=== PATIENT | male | born 1990 | race African-American/Black ===

== ENCOUNTER 2023-03-28 18:00 | Inpatient (IN) | payer MEDICAID, SELFPAY ==
[2023-03-28] VITALS (8 sets, daily range): BP systolic 112–145; BP diastolic 94–97; PULSE 89–110; RESP 14–26; O2SAT 98–100
--- NOTE | ~2023-03-28 | XR_ITS ---
EXAMINATION: XR chest 2V Exam Date/Time: 03/28/2023 18:15 CDT HISTORY: LEFT SIDED CHEST/ARM PAIN, NO CARDIAC HX Comparison: None. RESULT: Lines, tubes, and devices: None. Lungs and pleura: Clear. Cardiomediastinal silhouette: Unremarkable. Other: No acute osseous or upper abdominal finding. IMPRESSION: No acute cardiopulmonary process. Reviewed, dictated and finalized at location K.
--- NOTE | 2023-03-28 18:01 | ECG_ITS ---
Measurements Intervals [place] Rate: 108 P: 47 PA: 165 QRS: -25 QRSD: 90 T: 88 QT: 320 QTc: 430 Interpretive Statements SINUS TACHYCARDIA POSSIBLE LEFT ATRIAL ENLARGEMENT LOW QRS VOLTAGE IN PRECORDIAL LEADS BORDERLINE ST-T WAVE ABNORMALITY- HIGH LATERAL LEADS ABNORMAL ECG NO PREVIOUS ECG AVAILABLE FOR COMPARISON Electronically Signed On 03-28-2023 20:12:44 CDT by Tray Watson D.O.
[2023-03-28 18:21] LABS: Basophils Percent Auto 0.3 % (0.2-1.2); Eosinophils Absolute Auto 0.1 K/mm3 (0-0.3); Eosinophils Percent Auto 0.5 % (0-4.4); Hematocrit 44.8 % (42.0-52.0); Hemoglobin 14.8 g/dL (14.0-18.0); Immature Granulocyte Absolute 0.03 K/mm3 (0.00-0.031); Immature Granulocyte Percent A 0.2 % (0-0.5); Lymphocytes Absolute Auto 5.57 K/mm3 (0.9-3.2); Lymphocytes Percent Auto 42.1 % (18.3-44.2); Mean Corpuscular Volume 81.8 fl (80-100); Mean Platelet Volume 9.4 fl (7.4-10.4); Monocytes Absolute Auto 1.1 K/mm3 (0.1-0.6); Monocytes Percent Auto 8.1 % (2.6-8.5); Neutrophils Absolute Auto 6.5 K/mm3 (1.3-6.7); Neutrophils Percent Auto 48.8 % (45.5-73.1); Platelet Count Result 341 k/mm3 (150-375); Red Blood Count 5.48 M/mm3 (4.6-6.20); Red Cell Distribution Width 13.6 % (11.5-14.5); White Blood Count 13.2 K/mm3 (4.5-10.0)
[2023-03-28 18:30] LABS: Alanine Aminotransferase 30 U/L (6-50); Albumin Level 4.7 g/dL (3.5-5.1); Alkaline Phosphatase 96 U/L (38-126); Anion Gap 10 mmol/L (8-16); Aspartate Amino Transferase 39 U/L (17-59); Bilirubin,Total 0.4 mg/dL (0.2-1.3); Blood Urea Nitrogen 7 mg/dL (9-20); Carbon Dioxide 30 mmol/L (22-30); Chloride 99 mmol/L (98-107); Estimated CRCL calculation 144 ml/min; Estimated Glomerular Filt Rate > 60; Glucose 216 mg/dL (65-110); Lipase 56 U/L (23-300); Potassium 4.2 mmol/L (3.4-5.0); Sodium 139 mmol/L (137-145)
[2023-03-28 18:31] LABS: Prothrombin Time 13.2 Seconds (11.1-14.7)
[2023-03-28 18:32] LABS: Partial Thromboplastin Time 28.1 SECONDS (22.3-36.8)
[2023-03-28] MEDS: ASPIRIN 81 MG CHEWABLE TABLET 324 MG PO (18:48)
--- NOTE | 2023-03-28 19:37 | ECG_ITS ---
Measurements Intervals [place] Rate: 105 P: 45 WA: 140 QRS: -23 QRSD: 98 T: 60 QT: 336 QTc: 444 Interpretive Statements SINUS TACHYCARDIA BORDERLINE T WAVE ABNORMALITY- HIGH LATERAL LEADS BORDERLINE ECG COMPARED TO ECG 03/28/2023 18:07:09 NO SIGNIFICANT CHANGES Electronically Signed On 03-28-2023 20:16:28 CDT by Tray Watson D.O.
--- NOTE | 2023-03-28 19:54 | ED.CHESTPAIN ---
HPI - Chest Pain General Chief Complaint: Chest Pain Stated Complaint: chest pain, L arm weakness Time Seen by Provider: 03/28/23 19:03 History of Present Illness HPI narrative: This is a 32-year-old male, with no significant past medical history, presenting to the emergency department complaining of chest pain for the past 3 days. Patient describes the pain as burning, located on the left side, radiating to the left arm. He denies any known aggravating factors, but states it does not appear to be aggravated by physical exertion. Today at approximately 2 PM, the pain stopped and did not recur. Related Data Home Medications Medication Instructions Recorded Confirmed No Home Medications 03/29/23 03/29/23 Allergies Allergy/AdvReac Type Severity Reaction Status Date / Time No Known Allergies Allergy Verified 03/28/23 22:46 Review of Systems Review of Systems: CONSTITUTIONAL: Denies fever, chills, or sweats. CARDIOVASCULAR: chest pain Denies palpitations, or edema. RESPIRATORY: Denies cough or dyspnea. GASTROINTESTINAL: Denies abdominal pain, nausea, vomiting, or diarrhea. GENITOURINARY: Denies dysuria or hematuria. SKIN: Denies rash or itching. MUSCULOSKELETAL: Denies back pain, joint pain, or myalgia. NEUROLOGIC: Denies headache, numbness, dizziness, or weakness. PSYCHIATRIC: Denies anxiety or depression. [facility] Past Medical History Medical History No significant past medical history Surgical History Surgical History No significant past surgical history Family History Family History (Updated 03/29/23 @ 00:43 by Pan Villasenor RN) Mother Diabetes mellitus Cerebrovascular accident Acute myocardial infarction Father Cerebrovascular accident Acute myocardial infarction Gangrene Social History Social History (Updated 03/28/23 @ 19:57 by Maxim Esparza MD) Smoking packs per day: 0.5 Smoking cigarettes per day: 10.0 Years smoked: 15 Smoking pack-years: 7.50 Smoking status: Current every day smoker Tobacco type: cigarettes Alcohol intake: never Substance use: current Substance use type: marijuana Last use: 03/28/23 Lack of Transportation: No Lack of Food: Never True Current Housing: I Have Housing Concerned About Future Housing: No Difficulty Paying Gas/Electric Bills: No Difficulty Paying for Meds: No Currently Unemployed: No Education: High School Diploma/GED Difficulty w/ Childcare or Family Care: No Spiritual care concerns: No Exam Narrative: GENERAL: Well-developed, well-nourished, and in no acute distress. HEAD: Normocephalic, atraumatic. EYES: PERRLA and EOMI. ENT: Nares clear, no rhinorrhea or epistaxis. Mucous membranes moist. Oropharynx without tonsillar hypertrophy exudate or other lesions. Bilateral TMs pearly brian nonbulging NECK: Supple. No JVD CHEST: Clear to auscultation. No respiratory distress. No wheezes rales or rhonchi HEART: Regular rate and rhythm. No murmur heard. Normal peripheral pulses. ABDOMEN: Soft, nontender, nondistended, normal active bowel sounds. EXTREMITIES: Normal range of motion. No edema. SKIN: Warm, dry, no rash. NEURO: No focal deficits. Alert and oriented x3. PSYCH: Normal mood and affect. Course Course Emergency Course: 21:58 - Repeat troponin downtrending. Will discuss patient with cardiology and hospitalist for admission. CBC demonstrates elevated white blood cell count of 13.2. Chemistries demonstrate hyperglycemia of 216 but otherwise unremarkable. UA positive for cannabinoids. Chest x-ray unremarkable. 22:20 - I discussed the patient, Dr. Arriaza who agrees with heparin drip. Keeping the patient n.p.o. with plan for possible cath. 22:27 - I discussed the patient with hospitalist, Dr. Tierney who accepts admission to IMU. Vital Signs Vital signs: Vital Signs Puls
[2023-03-28 20:27] LABS: Amphetamine Screen Urine Negative (Negative); Barbiturate Screen Urine Negative (Negative); Benzodiazepines Screen Urine Negative (Negative); Cannabinoid Screen Urine Positive (Negative); Cocaine Screen Urine Negative (Negative); Methadone Screen Urine Negative (Negative); Opiate Screen Urine Negative (Negative); Phencyclidine Screen Urine Negative (Negative)
[2023-03-28] MEDS: HEPARIN SODIUM 5,000 UNITS/ML VIAL 4000 UNITS IV PUSH (22:47)
[2023-03-28] MEDS: SODIUM CHLORIDE 0.9% IV 1,000 ML 125 ML IV CONT (22:47)
[2023-03-28] MEDS: HEPARIN SOD/D5W 100 UNITS/ML 25,000 UNITS/250 ML BAG 10 UNITS IV CONT (22:48)
--- NOTE | 2023-03-28 23:00 | PC.NURSE ---
Assumed care of pt. at this time. report from CESAR Mathis
--- NOTE | 2023-03-28 23:13 | PM.IMHP ---
H&P: HPI History of Present Illness Date/Time: 03/28/23 23:13 Chief Complaint: Chest pain, left arm weakness. Narrative: This is a 32-year-old male, with with a history of chronic smoking, presenting to the emergency department complaining of chest pain for the past 3 days.? Patient describes the pain as burning, located on the left side, radiating to the left arm.? He denies any known aggravating factors, but states it does not appear to be aggravated by physical exertion.? He describes improvement of his arm pain after walking. Today at approximately 2 PM, the pain stopped and did not recur Review of Systems Review of Systems: CONSTITUTIONAL: Denies fever, chills, or sweats. CARDIOVASCULAR: chest pain Denies palpitations, or edema. RESPIRATORY: Denies cough or dyspnea. GASTROINTESTINAL: Denies abdominal pain, nausea, vomiting, or diarrhea. GENITOURINARY: Denies dysuria or hematuria. SKIN: Denies rash or itching. MUSCULOSKELETAL: Denies back pain, joint pain, or myalgia. NEUROLOGIC: Denies headache, numbness, dizziness, or weakness. PSYCHIATRIC: Denies anxiety or depression. [facility] Past Medical History Medical History No significant past medical history Surgical History Surgical History No significant past surgical history Family History Family History Mother Diabetes mellitus Cerebrovascular accident Acute myocardial infarction Father Cerebrovascular accident Acute myocardial infarction Gangrene Social History Social History Smoking packs per day: 0.5 Smoking cigarettes per day: 10.0 Years smoked: 15 Smoking pack-years: 7.50 Smoking status: Current every day smoker Tobacco type: cigarettes Alcohol intake: never Substance use: current Substance use type: marijuana Last use: 03/28/23 Lack of Transportation: No Lack of Food: Never True Current Housing: I Have Housing Concerned About Future Housing: No Difficulty Paying Gas/Electric Bills: No Difficulty Paying for Meds: No Currently Unemployed: No Education: High School Diploma/GED Difficulty w/ Childcare or Family Care: No Spiritual care concerns: No Meds Home Medications and Allergies Home Medications Medication Instructions Recorded Confirmed Type No Home Medications 03/29/23 03/29/23 History Allergies Allergy/AdvReac Type Severity Reaction Status Date / Time No Known Allergies Allergy Verified 03/28/23 22:46 Vital Signs Vital Signs - 24 hr 03/28/23 19:16 03/28/23 19:16 03/28/23 19:04 Pulse Rate 103 H 98 Respiratory Rate 20 22 H Blood Pressure 144/97 H Pulse Oximetry 100 100 99 Oxygen Delivery Room Air Room Air 03/28/23 19:15 03/28/23 19:16 03/28/23 19:45 Pulse Rate 110 H 110 H 105 H Respiratory Rate 15 18 26 H Blood Pressure 144/97 H Pulse Oximetry 100 100 98 Oxygen Delivery 03/28/23 20:01 03/28/23 21:25 03/28/23 22:27 Pulse Rate 109 H 94 89 Respiratory Rate 18 22 H 17 Blood Pressure 112/97 H 145/94 H Pulse Oximetry 99 100 100 Oxygen Delivery Exam Narrative: GENERAL: Well-developed, well-nourished, and in no acute distress. HEAD: Normocephalic, atraumatic. EYES: PERRLA and EOMI. ENT: Nares clear, no rhinorrhea or epistaxis. Mucous membranes moist. Oropharynx without tonsillar hypertrophy exudate or other lesions. Bilateral TMs pearly brian nonbulging NECK: Supple. No JVD CHEST: Clear to auscultation. No respiratory distress. No wheezes rales or rhonchi HEART: Regular rate and rhythm. No murmur heard. Normal peripheral pulses. ABDOMEN: Soft, nontender, nondistended, normal active bowel sounds. EXTREMITIES: Normal range of motion. No edema. SKIN: Warm, dry, no rash. NEURO: No focal deficits. Alert and oriented x3. PSYCH: Normal mood
[2023-03-28] MEDS: NICOTINE (*PBKC) 14 MG PATCH 1 PATCH TRANSDERM (23:21)
[2023-03-29] VITALS (17 sets, daily range): BP systolic 128–151; BP diastolic 58–90; PULSE 68–103; RESP 14–18; TEMP 36–36.9; O2SAT 99–100; BMI 37.2
--- NOTE | 2023-03-29 00:35 | ADMGEN ---
This patient, Segundo King, was admitted to IMU Room 211-01. Patient/family oriented to hospital policies and general routines including ID bracelet, bed and alarms, visiting hours, pain management, procedures, bathroom and other care routines, personal items, smoking policy, room service/diet, and visiting hours. Information on how to activate the Rapid Response Team has been discussed. Patient/Family are encouraged to report perceived risks to care and to ask questions if they do not understand what they are told or what they should do.
[2023-03-29 05:27] LABS: Partial Thromboplastin Time 49.9 SECONDS (22.3-36.8)
[2023-03-29 05:28] LABS: Alanine Aminotransferase 25 U/L (6-50); Albumin Level 3.7 g/dL (3.5-5.1); Alkaline Phosphatase 99 U/L (38-126); Anion Gap 5 mmol/L (8-16); Aspartate Amino Transferase 29 U/L (17-59); Bilirubin,Total 0.2 mg/dL (0.2-1.3); Blood Urea Nitrogen 8 mg/dL (9-20); Calcium 8.9 mg/dL (8.4-10.2); Carbon Dioxide 30 mmol/L (22-30); Chloride 102 mmol/L (98-107); Estimated CRCL calculation 141 ml/min; Estimated Glomerular Filt Rate > 60; Glucose 321 mg/dL (65-110); Potassium 4.2 mmol/L (3.4-5.0); Sodium 137 mmol/L (137-145)
[2023-03-29] MEDS: HEPARIN SODIUM 5,000 UNITS/ML VIAL 4000 UNITS IV PUSH (05:37)
--- NOTE | 2023-03-29 05:58 | ECG_ITS ---
Measurements Intervals [place] Rate: 94 P: 46 CT: 169 QRS: -23 QRSD: 99 T: 60 QT: 347 QTc: 436 Interpretive Statements SINUS RHYTHM BORDERLINE T WAVE ABNORMALITY- INF/HIGH LAT LEADS BORDERLINE ECG COMPARED TO ECG 03/28/2023 19:50:32 SINUS RHYTHM NOW PRESENT Electronically Signed On 03-29-2023 9:31:01 CDT by Tray Watson D.O.
[2023-03-29 07:08] LABS: Magnesium 1.7 mg/dL (1.6-2.3)
[2023-03-29 07:28] LABS: Hemoglobin A1C 10.7 % (<5.7)
[2023-03-29] MEDS: SODIUM CHLORIDE 0.9% IV 1,000 ML 125 ML IV CONT ×2 (07:49→15:45)
[2023-03-29 07:55] LABS: Glucose Point of Care 266 mg/dl (65-105)
[2023-03-29] MEDS: ROSUVASTATIN 20 MG TABLET 40 MG PO (08:13)
[2023-03-29] MEDS: METOPROLOL SUCCINATE EXT REL 12.5 MG TABCR PO (08:13)
--- NOTE | 2023-03-29 08:32 | PM.CNCAR ---
Assessment and Plan Assessment and plan (1) Non-ST elevation MO (NSTEMI): Code(s): I21.4 - Non-ST elevation (NSTEMI) myocardial infarction Status: Acute Assessment and Plan: 32-year-old male with no known prior cardiac history; newly diagnosed diabetes mellitus, tobacco abuse. Patient presents to the hospital with about 4-5 day history of chest pain with radiation to left arm. No acute ST segment abnormality on the EKG. Troponins elevated. Patient is a smoker and his HbA1c is found to be elevated. Clinical presentation more consistent with non ST elevation MO, although other etiologies cannot be completely ruled out. -standard treatment for ACS including antiplatelets, anticoagulation, beta keven, statin. -early invasive strategy with coronary angiogram discussed with the patient. After discussing benefits, risks and alternatives, he is willing to proceed with cardiac catheterization with an eye towards intervention as necessary. -aggressive risk factor modification including complete smoking cessation, weight loss and optimal control of diabetes mellitus. -further recommendation will follow after cardiac catheterization is complete. (2) Diabetes mellitus: Code(s): E11.9 - Type 2 diabetes mellitus without complications Status: Acute Assessment and Plan: Patient found to be hyperglycemic during hospitalization and his HbA1c significantly elevated. Management as per primary team. Patient will need to establish primary care physician and an door puller as an outpatient. (3) Tobacco abuse: Code(s): Z72.0 - Tobacco use Status: Acute Assessment and Plan: Complete smoking cessation counseling was done. (4) Marijuana abuse: Code(s): F12.10 - Cannabis abuse, uncomplicated Status: Acute Assessment and Plan: Patient advised to stop marijuana abuse. Harmful cardiovascular effects of marijuana abuse discussed with the patient. History of Present Illness History of Present Illness Consult date/time: 03/29/23 08:32 Requesting physician: Maxim Esparza MD Reason For Visit: NSTEMI Narrative: DATE OF CONSULT: 03/29/2023 REASON FOR CONSULT: non ST-elevation MO REQUESTING PHYSICIAN: Isaias Pan MD CHIEF COMPLAINT: chest pain HPI: 32-year-old male with no known prior cardiac history; newly diagnosed diabetes mellitus, tobacco abuse. Patient presented to [facility] Emergency Room on 03/28/2023 with complaints of chest pain that started about 4-5 days ago. Patient describes chest pain as burning sensation in the substernal area and left side of the chest with radiation to left arm. He denied any associated symptoms of shortness of breath, palpitation, dizziness or syncope. Patient states that his symptoms have been off and on for last several days, and he finally decided to come to the hospital for further evaluation. He denies any known prior cardiac history including clinical MO. 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 He usually drives several hours today. He denies any calf pain or swelling. EKG on my personal interpretation shows sinus tachycardia at a heart rate of 108 beats per minute, low voltage in precordial leads. No significant changes on the follow-up EKG. Troponins elevated with peak troponin level of 1.8 which is trending downwards. UDS positive for cannabinoids. Patient was found to be hyperglycemic during hospitalization and his hB A1c is elevated at 10.7. Review of Systems Review of Systems: General: Negative for fever, chills, fatigue Psychological: Negative for anxiety, depression Ophthalmic: negative for loss of vision ENT: Negative for epistaxis, headaches Allergy and immunology: Negative for hives, nasal congestion Hematologic and lymphatic: Negative for overt bleeding problems Endocrine: Negative for hot flashes, palpitations Respiratory: Negative for cough, hemoptysis Cardiovascular: Positive
--- NOTE | 2023-03-29 09:24 | WPDMODSED ---
Moderate Sedation Note-Pt Data Patient Data Allergies Allergy/AdvReac Type Severity Reaction Status Date / Time No Known Allergies Allergy Verified 03/28/23 22:46 Home Medications Medication Instructions Recorded Confirmed Type No Home Medications 03/29/23 03/29/23 History Current Medications: Active Medications Heparin Sodium (Porcine) (Heparin Sodium 5,000 Units/Ml Vial) 3,500 units IV PUSH PRN PRN PRN Reason: aPTT 55 - 70 seconds Heparin Sodium (Porcine) (Heparin Sodium 5,000 Units/Ml Vial) 4,000 units IV PUSH PRN PRN PRN Reason: aPTT less than 55 seconds Last Admin: 03/29/23 05:37 Dose: 4,000 units Sodium Chloride (Normal Saline Iv) 1,000 mls @ 125 mls/hr IV CONT .Q8H [facility] Last Admin: 03/29/23 07:49 Dose: 125 mls/hr Heparin Sodium/Dextrose (Heparin Sodium/D5w 100 Units/Ml) 25,000 units in 250 mls @ 13 mls/hr IV CONT .[id number] [facility]; Protocol Last Infusion: 03/29/23 05:38 Dose: 1,300 units/hr, 13 mls/hr Metoprolol Succinate (Metoprolol Succinate Ext Rel 12.5 Mg Tabcr) [facility] [place] Last Admin: 03/29/23 08:13 Dose: 12.5 mg Morphine Sulfate (Morphine Sulfate (*Crx) 4 Mg/Ml Inj) 4 mg IV PUSH Q2H PRN PRN Reason: Pain Rated 7-10 Rosuvastatin Calcium (Rosuvastatin 20 Mg Tablet) 40 [facility] [place] Last Admin: 03/29/23 08:13 Dose: 40 mg Sedation/Anesthesia: No previous sedation/anesthesia problems (including family history). [facility] Past Medical History Medical History No significant past medical history Surgical History Surgical History No significant past surgical history Family History Family History Mother Diabetes mellitus Cerebrovascular accident Acute myocardial infarction Father Cerebrovascular accident Acute myocardial infarction Gangrene Social History Social History Smoking packs per day: 0.5 Smoking cigarettes per day: 10.0 Years smoked: 15 Smoking pack-years: 7.50 Smoking status: Current every day smoker Tobacco type: cigarettes Alcohol intake: never Substance use: current Substance use type: marijuana Last use: 03/28/23 Lack of Transportation: No Lack of Food: Never True Current Housing: I Have Housing Concerned About Future Housing: No Difficulty Paying Gas/Electric Bills: No Difficulty Paying for Meds: No Currently Unemployed: No Education: High School Diploma/GED Difficulty w/ Childcare or Family Care: No Spiritual care concerns: No Mod Sed Physical Exam Physical Exam Pre Procedural Exam: Normal: Airway Hours since solid foods: 10 Hours since liquid intake: 6 Mallampati Classification: class III Internal Medicine - PN: Obj Da Vital Signs Vital Signs: Vital Signs - 24 hr 03/28/23 19:16 03/28/23 19:16 03/28/23 19:04 Temperature Pulse Rate 103 H 98 Respiratory Rate 20 22 H Blood Pressure 144/97 H Pulse Oximetry 100 100 99 Oxygen Delivery Room Air Room Air 03/28/23 19:15 03/28/23 19:16 03/28/23 19:45 Temperature Pulse Rate 110 H 110 H 105 H Respiratory Rate 15 18 26 H Blood Pressure 144/97 H Pulse Oximetry 100 100 98 Oxygen Delivery 03/28/23 20:01 03/28/23 21:25 03/28/23 22:27 Temperature Pulse Rate 109 H 94 89 Respiratory Rate 18 22 H 17 Blood Pressure 112/97 H 145/94 H Pulse Oximetry 99 100 100 Oxygen Delivery 03/28/23 23:26 03/28/23 23:26 03/29/23 00:10 Temperature Pulse Rate 89 92 88 Respiratory Rate 14 14 Blood Pressure 145/97 H 149/87 H Pulse Oximetry 100 99 Oxygen Delivery 03/29/23 00:30 03/29/23 01:15 03/29/23 02:00 Temperature 36.0 C L Pulse Rate 90 88 Respiratory Rate 16 Blood Pressure 128/83 Pulse Oximetry 99 Oxygen Delivery Room Air 03/29/23 00:30 03/29/23 04:00 03/29/23 04:00 Temperature Pulse R
[2023-03-29] MEDS: NICOTINE (*PBKC) 14 MG PATCH 1 PATCH TRANSDERM (12:09)
[2023-03-29 12:11] LABS: Partial Thromboplastin Time 62.2 SECONDS (22.3-36.8)
--- NOTE | 2023-03-29 12:13 | PM.IMPN ---
Progress Note: A&P Assessment and Plan (1) Chest pain: Qualifiers: Chest pain type: other chest pain Qualified Code(s): R07.89 - Other chest pain Code(s): R07.9 - Chest pain, unspecified Status: Acute Assessment and Plan: Patient presents with acute chest pain radiating to his left arm concerning for an acute coronary syndrome. Initial troponin was elevated at 1.74->1.65->1.85. Patient was admitted for NSTEMI under hospitalist service (2) Elevated troponin: Code(s): R77.8 - Other specified abnormalities of plasma proteins Status: Acute Assessment and Plan: Patient denies any significant risk factors other than chronic smoking. He did present with typical chest pain radiating to the her. (3) NSTEMI, initial episode of care: Code(s): I21.4 - Non-ST elevation (NSTEMI) myocardial infarction Status: Acute Assessment and Plan: Patient was treated with early medical management. By the time of presentation is chest pain abated. Will give nitroglycerin as needed for recurrent chest pain . Patient will receive better be located with metoprolol. He received anti-platelet therapy, acute anticoagulation with heparin drip,. His serum potassium and magnesium were monitored. Cardiology has been consulted. (4) Contact with and (suspected) exposure to environmental tobacco smoke (acute) (chronic): Code(s): Z77.22 - Contact with and (suspected) exposure to environmental tobacco smoke (acute) (chronic) Status: Acute Assessment and Plan: Patient was counseled to quit smoking and started on continue replacement protocol. (5) Obesity: Code(s): E66.9 - Obesity, unspecified Status: Acute Assessment and Plan: Calorie reduction Increase physical activity after resolution of acute ID Plan Patient is a full code. Patient is admitted inpatient under hospital medicine service. Cardiology has been consulted DVT prophylaxis: Patient is already on heparin drip. Subjective Date/time seen: 03/29/23 12:13 Interval history: No complaints Exam Narrative: GENERAL: Well-developed, well-nourished, and in no acute distress. HEAD: Normocephalic, atraumatic. EYES: PERRLA and EOMI. ENT: Nares clear, no rhinorrhea or epistaxis. Mucous membranes moist. Oropharynx without tonsillar hypertrophy exudate or other lesions. Bilateral TMs pearly brian nonbulging NECK: Supple. No JVD CHEST: Clear to auscultation. No respiratory distress. No wheezes rales or rhonchi HEART: Regular rate and rhythm. No murmur heard. Normal peripheral pulses. ABDOMEN: Soft, nontender, nondistended, normal active bowel sounds. EXTREMITIES: Normal range of motion. No edema. SKIN: Warm, dry, no rash. NEURO: No focal deficits. Alert and oriented x3. PSYCH: Normal mood and affect. Objective Data Vital Signs Vital Signs: Vital Signs - 24 hr 03/28/23 19:16 03/28/23 19:16 03/28/23 19:04 Temperature Pulse Rate 103 H 98 Respiratory Rate 20 22 H Blood Pressure 144/97 H Pulse Oximetry 100 100 99 Oxygen Delivery Room Air Room Air 03/28/23 19:15 03/28/23 19:16 03/28/23 19:45 Temperature Pulse Rate 110 H 110 H 105 H Respiratory Rate 15 18 26 H Blood Pressure 144/97 H Pulse Oximetry 100 100 98 Oxygen Delivery 03/28/23 20:01 03/28/23 21:25 03/28/23 22:27 Temperature Pulse Rate 109 H 94 89 Respiratory Rate 18 22 H 17 Blood Pressure 112/97 H 145/94 H Pulse Oximetry 99 100 100 Oxygen Delivery 03/28/23 23:26 03/28/23 23:26 03/29/23 00:10 Temperature Pulse Rate 89 92 88 Respiratory Rate 14 14 Blood Pressure 145/97 H 149/87 H Pulse Oximetry 100 99 Oxygen Delivery 03/29/23 00:30 03/29/23 01:15 03/29/23 02:00 Temperature 96.8 F L Pulse Rate 90 88 Respiratory Rate 16 Blood Pressure 128/83 Pulse Oximetry 99 Oxygen Delivery Room Air 03/29/23 00:30 03/29/23 04:00 03/29/23 04:00 Temperature Pulse
[2023-03-29] MEDS: INSULIN ASPART (*BKC) 100 UNITS/ML SUB-Q ×3 (12:21→20:33)
[2023-03-29 12:39] LABS: Glucose Point of Care 242 mg/dl (65-105)
[2023-03-29] MEDS: HEPARIN SODIUM 5,000 UNITS/ML VIAL 3500 UNITS IV PUSH (13:02)
[2023-03-29] MEDS: LORazepam (*CRX) 0.5 MG TABLET PO (14:30)
[2023-03-29 17:02] LABS: Glucose Point of Care 336 mg/dl (65-105)
[2023-03-29 17:13] LABS: Glucose Point of Care 321 mg/dl (65-105)
[2023-03-29] MEDS: HEPARIN SOD/D5W 100 UNITS/ML 25,000 UNITS/250 ML BAG 15 UNITS IV CONT (17:50)
[2023-03-29 19:17] LABS: Partial Thromboplastin Time 100.3 SECONDS (22.3-36.8)
[2023-03-29 20:24] LABS: Glucose Point of Care 229 mg/dl (65-105)
[2023-03-30] VITALS (25 sets, daily range): BP systolic 118–154; BP diastolic 68–110; PULSE 78–99; RESP 12–20; TEMP 36.3–36.9; O2SAT 97–100
--- NOTE | 2023-03-30 | ECHO_ITS ---
Patient Info Name: Segundo King Age: 32 years : 1990 Gender: Male Ht: 69 in Wt: 245 lbs BSA: 2.37 m2 HR: 95 bpm BP: 129 / 83 mmHg Heart Rhythm: Sinus Rhythm Technical Quality: Fair Exam Date: 03/30/2023 2:20 PM Exam Location: [facility] Pulmonary Patient Status: Inpatient Admit Date: 03/30/2023 Staff Ordering Physician: Jimmie Saleh MD (mandi/benita) Amphibian Crewmember: Lashawn Mccoy RDCS Attending Provider: Luz Tierney MD Referring Physician: Delfino POLANCO; Exam Type: CA echo dop color flow w con Study Info Indications - NSTEMI Complete two-dimensional, color flow and Doppler transthoracic echocardiogram is performed with contrast to opacify the left ventricle and to improve the deliniation of the left ventricle endocardial borders. Contrast/Agitated Saline Contrast/Ag. Saline: Definity Amount: 2.00 ml Administered By: Lashawn Mccoy RDCS Existing IV Access: Yes IV Access Condition: patent with no signs of infiltration Summary 1. Left ventricular chamber dimension is normal. 2. Left ventricular systolic function is normal, estimated at 60-65%. 3. There is mildly increased left ventricular wall thickness. 4. The left ventricular diastolic function is abnormal. 5. The basal inferolateral wall, and mid inferolateral wall are hypokinetic. 6. There is trace tricuspid valve regurgitation. 7. There is trivial pericardial effusion. Left Ventricle Left ventricular chamber dimension is normal. Left ventricular systolic function is normal, estimated at 60-65%. There is mildly increased left ventricular wall thickness. The left ventricular diastolic function is abnormal. The basal inferolateral wall, and mid inferolateral wall are hypokinetic. All other huerta appear normal. Right Ventricle Right ventricular chamber dimension is normal. Right ventricular systolic function is normal. Left Atria Left atrial chamber dimension is normal. Right Atria Right atrial chamber dimension is normal. Atrial Septum Intact interatrial septum visualized by color flow imaging. Aortic Valve The aortic valve is trileaflet. There is no aortic valve sclerosis. There is no aortic valve stenosis. There is trace aortic valve regurgitation. Pulmonic Valve The pulmonic valve is normal. There is no pulmonic valve stenosis. There is trace pulmonic regurgitation. Mitral Valve The mitral valve has normal leaflets. There is no mitral valve stenosis. There is trace mitral valve regurgitation. Tricuspid Valve The tricuspid valve leaflets are normal. There is no significant tricuspid valve stenosis. There is trace tricuspid valve regurgitation. Pericardium/Pleural The pericardium appears normal. There is trivial pericardial effusion. Inferior Vena Cava Normal inferior vena cava with >50% collapse upon inspiration consistent with normal right atrial pressure, 5 mmHg. Aorta The aortic root size at the sinus of Valsalva is normal. Left Ventricular Outflow Tract Name Value Normal LVOT 2D LVOT Diameter 1.85 cm LVOT Doppler LVOT Peak Gradient 2 mmHg LVOT Mean Gradient 1 mmHg LVO
[2023-03-30 02:06] LABS: Partial Thromboplastin Time 84.7 SECONDS (22.3-36.8)
[2023-03-30 08:00] LABS: Glucose Point of Care 269 mg/dl (65-105)
[2023-03-30] MEDS: METOPROLOL SUCCINATE EXT REL 12.5 MG TABCR PO (08:51)
[2023-03-30] MEDS: ROSUVASTATIN 20 MG TABLET 40 MG PO (08:51)
[2023-03-30] MEDS: NICOTINE (*PBKC) 14 MG PATCH 1 PATCH TRANSDERM (08:52)
[2023-03-30] MEDS: INSULIN ASPART (*BKC) 100 UNITS/ML SUB-Q ×2 (08:53→17:00)
[2023-03-30 09:47] LABS: Cholesterol 174 mg/dL (0-200); HDL Direct 33 mg/dL; Triglycerides 129 mg/dL (<150)
[2023-03-30 09:58] LABS: LDL Cholesterol Direct 105 mg/dL
[2023-03-30] MEDS: ASPIRIN 325 MG ENTERIC TABLET PO (10:05)
[2023-03-30] MEDS: CLOPIDOGREL BISULFATE 300 MG TABLET 600 MG PO (10:06)
--- NOTE | 2023-03-30 10:50 | PC.NURSE ---
1030- to cardiac laborer driver via bed accompanied by [employer]TAIN[employer] staff
--- NOTE | 2023-03-30 12:15 | WPDMODSED ---
Moderate Sedation Note-Pt Data Patient Data Diagnosis: NSTEMI Present Complaint: NSTEMI Procedure to be performed/Plan: Coronary angiography, LHC, +/- PCI Allergies Allergy/AdvReac Type Severity Reaction Status Date / Time No Known Allergies Allergy Verified 03/28/23 22:46 Home Medications Medication Instructions Recorded Confirmed Type No Home Medications 03/29/23 03/29/23 History Current Medications: Active Medications Aspirin (Aspirin 81 Mg Enteric Tablet) 81 mg PO QAM MIKI Clopidogrel Bisulfate (Clopidogrel Bisulfate 75 Mg Tablet) 75 mg PO QAM MIKI Dextrose (Dextrose 50% 25 Gm/50 Ml Syringe) 12.5 gm IV PUSH PRN PRN; Protocol PRN Reason: Hypoglycemia Glucagon (Glucagon For Inj 1 Mg Vial) 1 mg IM PRN PRN; Protocol PRN Reason: Hypoglycemia Glucose (Glucose Oral Gel 15 Gm Of Glucse In 37.5 Gm Tube) 15 gm PO PRN PRN; Protocol PRN Reason: Hypoglycemia Heparin Sodium (Porcine) (Heparin Sodium 5,000 Units/Ml Vial) 3,500 units IV PUSH PRN PRN PRN Reason: aPTT 55 - 70 seconds Last Admin: 03/29/23 13:02 Dose: 3,500 units Heparin Sodium (Porcine) (Heparin Sodium 5,000 Units/Ml Vial) 4,000 units IV PUSH PRN PRN PRN Reason: aPTT less than 55 seconds Last Admin: 03/29/23 05:37 Dose: 4,000 units Heparin Sodium/Dextrose (Heparin Sodium/D5w 100 Units/Ml) 25,000 units in 250 mls @ 15 mls/hr IV CONT .[id number] MIKI; Protocol Last Infusion: 03/30/23 10:30 Dose: Infused Dextrose (Dextrose 5% 1,000 Ml) 1,000 mls @ 100 mls/hr IVPB PRN PRN; Protocol PRN Reason: Hypoglycemia Insulin Aspart (Insulin Aspart (*Bkc) 100 Units/Ml) 2 - 5 units SUB-Q TIDWM MIKI; Protocol Last Admin: 03/30/23 08:53 Dose: 3 units Insulin Aspart (Insulin Aspart (*Bkc) 100 Units/Ml) 1 - 2 units SUB-Q HS MIKI; Protocol Last Admin: 03/29/23 20:33 Dose: 1 units Lorazepam (Lorazepam (*Crx) 0.5 Mg Tablet) 0.5 mg PO BID PRN PRN Reason: Anxiety Last Admin: 03/29/23 14:30 Dose: 0.5 mg Metoprolol Succinate (Metoprolol Succinate Ext Rel 12.5 Mg Tabcr) 12.5 mg PO [facility] Last Admin: 03/30/23 08:51 Dose: 12.5 mg Morphine Sulfate (Morphine Sulfate (*Crx) 4 Mg/Ml Inj) 4 mg IV PUSH Q2H PRN PRN Reason: Pain Rated 7-10 Nicotine (Nicotine (*Pbkc) 14 Mg Patch) 1 patch TRANSDERM [facility] Last Admin: 03/30/23 08:52 Dose: 1 patch Perflutren Lipid Microsphere (Perflutren Lipid Microspheres 1.5 Ml Vial Diluted To 10 Ml Total Volume) 0 ml IV PUSH ONCE PRN; Protocol PRN Reason: adequate visualization Stop: 04/01/23 09:19 Rosuvastatin Calcium (Rosuvastatin 20 Mg Tablet) 40 mg PO [facility] Last Admin: 03/30/23 08:51 Dose: 40 mg Sedation/Anesthesia: No previous sedation/anesthesia problems (including family history). [facility] Past Medical History Medical History No significant past medical history Surgical History Surgical History No significant past surgical history Family History Family History Mother Diabetes mellitus Cerebrovascular accident Acute myocardial infarction Father Cerebrovascular accident Acute myocardial infarction Gangrene Social History Social History Smoking packs per day: 0.5 Smoking cigarettes per day: 10.0 Years smoked: 15 Smoking pack-years: 7.50 Smoking status: Current every day smoker Tobacco type: cigarettes Alcohol intake: never Substance use: current Substance use type: marijuana Last use: 03/28/23 Lack of Transportation: No Lack of Food: Never True Current Housing: I Have Housing Concerned About Future Housing: No Difficulty Paying Gas/Electric Bills: No Difficulty Paying for Meds: No Currently Unemployed: No Education: High School Diploma/GED Difficulty w/ Childcare or Family Care: No Spiritual care concerns: No Mod Sed Physical
--- NOTE | 2023-03-30 12:16 | ECG_ITS ---
Measurements Intervals Cassandra Rate: 91 P: 52 OH: 168 QRS: -31 QRSD: 93 T: 55 QT: 346 QTc: 426 Interpretive Statements SINUS RHYTHM LEFT AXIS DEVIATION NONSPECIFIC T-WAVE ABNORMALITY- HIGH LATERAL LEADS BORDERLINE ECG COMPARED TO ECG 03/29/2023 09:28:08 LEFT-AXIS DEVIATION NOW PRESENT Electronically Signed On 03-30-2023 14:50:45 CDT by Tray Watson D.O.
--- NOTE | 2023-03-30 12:32 | WPDCARDPROC ---
Cardiac Cath Procedure Note Date of procedure:: 03/30/23 Performing physician:: CATHETERIZATION LABORATORY REPORT Procedure Date: 03/30/2023 Financial Reporting Specialist: Jimmie Saleh M.D., [facility]? Referring Physician: Jimmie Saleh M.D. ? Anesthesia: Versed and Fentanyl were ordered and given in my presence at 11:00, procedure ended at 12:03. Supervision of nurse monitored moderate sedation with Versed and Fentanyl was provided for 63 minutes. Total of Versed 3mg and Fentanyl 75mcg were administered by the [employer] RN Karen Longoria. Pre-op Diagnosis: NSTEMI Post-op Diagnosis: Significant obstructive 99% stenosis of the mid left circumflex s/p successful PCI with KATHY x 1 Procedure(s): 1. Moderate sedation 2. Ultrasound-guided access of the right radial artery 3. Coronary angiography 4. IVUS-guided PCI of the mid LCX with KATHY x 1 Access Site: Right radial artery Brief History and Clinical Indications: Patient is a 32 year old male with diabetes mellitus and tobacco dependence who is referred for cardiac catheterization for NSTEMI. All risks, benefits and alternatives to coronary angiography and left heart catheterization with or without percutaneous coronary intervention was discussed at length with the patient. Risk of complications including but not limited to bleeding, infection, arrhythmia, stroke, worsening kidney function, blood loss, groin hematoma, limb loss, emergency coronary artery bypass grafting, and even were discussed with the patient and all questions were answered. The patient understood and wished to proceed. Time out called, patient name, date of , medical record number, allergies, procedure performed, identify Financial Reporting Specialist, patient and staff member concurred with accurate data, procedure carried on. Findings: LEFT HEART CATHETERIZATION FINDINGS: 1. Left main: Large caliber vessel. The left main coronary artery is widely patent without any significant obstructive disease. 2. Left anterior descending: Large caliber vessel. The LAD and the diagonal branches have luminal irregularities without any significant obstructive angiographic disease. 3. Left circumflex: Large caliber vessel. The proximal left circumflex has luminal irregularities. The mid portion has a focal 99% stenosis proximal to the bifurcation of OM-1 vessel. The OM-1 vessel has mild diffuse disease with a moderate ostial stenosis. The remainder of the LCX after the bifurcation has mild diffuse disease. 4. Right coronary artery: Large caliber vessel. The RCA is the dominant vessel. The proximal portion has luminal irregularities. The mid portion has mild 30% stenosis. The distal portion has luminal irregularities No significant obstructive angiographic disease. Description of Procedure and PCI: Informed consent signed and placed in the chart. Patient transferred to laborer concrete plant room. Prepped and draped in usual sterile fashion. 2% lidocaine injected subcutaneously in right wrist area. 22-gauge venipuncture catheter used to access the right radial artery with the Seldinger technique. 6-FR slender sheath placed in right radial artery. Nitroglycerine and Verapamil were given intraarterial through the sheath. Versacore wire advanced under fluoroscopy 5F Tig 4 diagnostic catheter engaged Left Main Coronary Artery. 5F JR 4 diagnostic catheter engaged Right Coronary Artery Multiple orthogonal angiogram obtained and reviewed Unable to cross 5F Pigtail across the aortic valve and into the LV to obtain LVEDP. After review of angiograms, decision made to proceed with LCX PCI. Angiomax used for anticoagulation. 6F CLS 3.0 guide catheter was used to intubate the LM. 0.014 [place] coronary wire was passed in to the distal LCX. The lesion was pre-dilated with a 2.5mm x 10mm balloon inflated to high YARIEL. IVUS catheter advanced over wire and distal to the lesion. Reference measurements obtained. A 3.5mm x 12mm Xience KATHY was successfully deployed into m
--- NOTE | 2023-03-30 13:34 | PM.PNCARD ---
Progress Note: A&P Assessment and Plan (1) Non-ST elevation IA (NSTEMI): Code(s): I21.4 - Non-ST elevation (NSTEMI) myocardial infarction Status: Acute Assessment and Plan: 32-year-old male with no known prior cardiac history;? newly diagnosed diabetes mellitus, tobacco abuse.? Patient presents to the hospital with about 4-5 day history of chest pain with radiation to left arm.? No acute ST segment abnormality on the EKG.? Troponins elevated.? Patient is a smoker and his HbA1c is found to be elevated.? Clinical presentation more consistent with non ST elevation IA, although other etiologies cannot be completely ruled out. Started on standard treatment for ACS including antiplatelets, anticoagulation, beta keven, statin.? Cardiac catheterization showed: Significant obstructive 99% stenosis of the mid left circumflex s/p successful PCI with KATHY x 1. Patient to be on ASA 81mg once daily indefinitely. Loaded with Plavix 600mg x 1, continue with 75mg once daily for at least 1 year. High intensity statin. Beta keven. TTE pending. Referral to cardiac rehab placed. Anticipate discharge home tomorrow. (2) Tobacco abuse: Code(s): Z72.0 - Tobacco use Status: Acute Assessment and Plan: Extensively discussed smoking cessation. (3) Diabetes mellitus: Code(s): E11.9 - Type 2 diabetes mellitus without complications Status: Acute Assessment and Plan: Patient found to be hyperglycemic during hospitalization and his HbA1c significantly elevated.? Management as per primary team.? Patient will need to establish primary care physician and an director e learning as an outpatient. (4) Marijuana abuse: Code(s): F12.10 - Cannabis abuse, uncomplicated Status: Acute Assessment and Plan: Patient advised to stop marijuana abuse.? Harmful cardiovascular effects of marijuana abuse discussed with the patient. Subjective Date/time seen: 03/30/23 13:34 Interval history: Reason for visit: NSTEMI HPI: 32-year-old male with no known prior cardiac history;? newly diagnosed diabetes mellitus, tobacco abuse.?Patient presented to [facility] Emergency Room on 03/28/2023 with complaints of chest pain that started about 4-5 days ago.? Patient describes chest pain as burning sensation in the substernal area and left side of the chest with radiation to left arm.? He denied any associated symptoms of shortness of breath, palpitation, dizziness or syncope.? Patient states that his symptoms have been off and on for last several days, and he finally decided to come to the hospital for further evaluation.? He denies any known prior cardiac history including clinical IA. 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 He denies any calf pain or swelling. EKG on my personal interpretation shows sinus tachycardia at a heart rate of 108 beats per minute, low voltage in precordial leads.? No significant changes on the follow-up EKG.? Troponins elevated with peak troponin level of 1.8 which is trending downwards.? UDS positive for cannabinoids.? Patient was found to be hyperglycemic during hospitalization and his hB A1c is elevated at 10.7. Date of service 03/30: No longer having any chest pain. Feeling otherwise well this morning. Agreeable to cath. Review of Systems Review of Systems: All systems reviewed & are unremarkable except as noted in HPI and below (HPI) Exam Const: General: comfortable and no acute distress HENMT: Mouth: Yes moist mucous membranes Eyes: General: appearance normal, both eyes and all related structures Sclera: sclerae normal Resp: Effort & Inspection: normal respiratory effort Cardio: Rate: regular rate Rhythm: regular rhythm Skin: General skin exam: normal color Neuro: Speech: normal speech Psych: Mental Status: mental status grossly normal Affect: normal affect Objective Data Vital Signs Vital Signs: Vital Si
[2023-03-30] MEDS: PERFLUTREN LIPID MICROSPHERES 1.5 ML VIAL DILUTED TO 10 ML TOTAL VOLUME IV PUSH (14:40)
[2023-03-30] MEDS: SODIUM CHLORIDE 0.9% IV 1,000 ML 125 ML IV CONT (16:12)
--- NOTE | 2023-03-30 16:43 | PC.NURSE ---
1515- pt returned to room post cardiac cath- site R radial- arm board in place and dressing to site CDI- + pulses- VSS- pt denies c/o pain
[2023-03-30 17:01] LABS: Glucose Point of Care 267 mg/dl (65-105)
--- NOTE | 2023-03-30 17:24 | WPDPN ---
Progress Note: A&P Assessment and Plan (1) Chest pain: Qualifiers: Chest pain type: other chest pain Qualified Code(s): R07.89 - Other chest pain Code(s): R07.9 - Chest pain, unspecified Status: Acute Assessment and Plan: Patient presents with acute chest pain radiating to his left arm concerning for an acute coronary syndrome. Initial troponin was elevated at 1.74->1.65->1.85. Patient was admitted for NSTEMI under hospitalist service 03/30/2023 interval history: patient presented with CP is found to have NSTEMI and new onset DM, patient was taken to cath was found to have stenosis of left circumflex and had KATHY was successful, patient is clinically stable, started patient on DAPT and statin, also patient has new onset DM will be seen by antisqueak worker, will monitor. (2) Elevated troponin: Code(s): R77.8 - Other specified abnormalities of plasma proteins Status: Acute Assessment and Plan: Patient denies any significant risk factors other than chronic smoking. He did present with typical chest pain radiating to the her. (3) NSTEMI, initial episode of care: Code(s): I21.4 - Non-ST elevation (NSTEMI) myocardial infarction Status: Acute Assessment and Plan: Patient was treated with early medical management. By the time of presentation is chest pain abated. Will give nitroglycerin as needed for recurrent chest pain . Patient will receive better be located with metoprolol. He received anti-platelet therapy, acute anticoagulation with heparin drip,. His serum potassium and magnesium were monitored. Cardiology has been consulted. (4) Contact with and (suspected) exposure to environmental tobacco smoke (acute) (chronic): Code(s): Z77.22 - Contact with and (suspected) exposure to environmental tobacco smoke (acute) (chronic) Status: Acute Assessment and Plan: Patient was counseled to quit smoking and started on continue replacement protocol. (5) Obesity: Code(s): E66.9 - Obesity, unspecified Status: Acute Assessment and Plan: Calorie reduction Increase physical activity after resolution of acute IL Plan Patient is a full code. Patient is admitted inpatient under hospital medicine service. Cardiology has been consulted DVT prophylaxis: Patient is already on heparin drip. Subjective Date/time seen: 03/30/23 17:24 Interval history: 03/30/2023 interval history: patient presented with CP is found to have NSTEMI and new onset DM, patient was taken to cath was found to have stenosis of left circumflex and had KATHY was successful, patient is clinically stable, started patient on DAPT and statin, also patient has new onset DM will be seen by antisqueak worker, will monitor. Review of Systems Review of Systems: CONSTITUTIONAL: Denies fever, chills, or sweats. CARDIOVASCULAR: chest pain Denies palpitations, or edema. RESPIRATORY: Denies cough or dyspnea. GASTROINTESTINAL: Denies abdominal pain, nausea, vomiting, or diarrhea. GENITOURINARY: Denies dysuria or hematuria. SKIN: Denies rash or itching. MUSCULOSKELETAL: Denies back pain, joint pain, or myalgia. NEUROLOGIC: Denies headache, numbness, dizziness, or weakness. PSYCHIATRIC: Denies anxiety or depression. Exam Narrative: Morbidly obese Patient is comfortable, NAD HEENT: eyes are clear and none icteric LUNGS: Normal respiratory effort ABD: Not distended Lower extremities: no edema SKIN: nonjaundiced Neuro: grossly intact. Objective Data Vital Signs Vital Signs: Vital Signs - 24 hr 03/29/23 18:00 03/29/23 20:00 03/29/23 20:00 Temperature 97.5 F L Pulse Rate 96 93 100 Respiratory Rate 16 Blood Pressure 132/82 Pulse Oximetry 100 Oxygen Delivery 03/29/23 20:00 03/29/23 22:00 03/29/23 23:36 Temperature 97.2 F L Pulse Rate 100 89 89 Respiratory Rate 16 16 Blood Pressure 135/90 Pulse Oximetry 100 100 Oxygen Delivery Ro
--- NOTE | 2023-03-30 17:30 | IVDEFINITY ---
Prior to administration of IV Definity the patient was educated on the risks and benefits of the imaging enhancing agent including potential adverse side effects. The patient verbalized understanding. Allergies were verified. No exclusion criteria were identified and at least one of the following inclusion criteria were met: 1) physician request, 2) patient technically difficult to image (per the [place] [employer] guidelines of two or more segments not discernable within the apical view), or 3) questionable left ventricular function. ?
[2023-03-30 20:08] LABS: Glucose Point of Care 188 mg/dl (65-105)
[2023-03-30] MEDS: LORazepam (*CRX) 0.5 MG TABLET PO (20:21)
[2023-03-31] VITALS (10 sets, daily range): BP systolic 128–138; BP diastolic 73–89; PULSE 75–107; RESP 18–21; TEMP 35.7–36.4; O2SAT 100; BMI 37.3
[2023-03-31 05:09] LABS: Partial Thromboplastin Time 28.2 SECONDS (22.3-36.8)
[2023-03-31 08:02] LABS: Glucose Point of Care 238 mg/dl (65-105)
[2023-03-31] MEDS: ASPIRIN 81 MG ENTERIC TABLET PO (09:44)
[2023-03-31] MEDS: CLOPIDOGREL BISULFATE 75 MG TABLET PO (09:44)
[2023-03-31] MEDS: METOPROLOL SUCCINATE EXT REL 25 MG TABCR PO (09:45)
[2023-03-31] MEDS: NICOTINE (*PBKC) 14 MG PATCH 1 PATCH TRANSDERM (09:45)
[2023-03-31] MEDS: ROSUVASTATIN 20 MG TABLET 40 MG PO (09:46)
[2023-03-31] MEDS: LORazepam (*CRX) 0.5 MG TABLET PO (09:46)
[2023-03-31] MEDS: INSULIN ASPART (*BKC) 100 UNITS/ML SUB-Q ×2 (09:46→11:56)
[2023-03-31 12:31] LABS: Glucose Point of Care 345 mg/dl (65-105)
--- NOTE | 2023-03-31 13:04 | PM.PNCARD ---
Progress Note: A&P Assessment and Plan (1) Non-ST elevation MA (NSTEMI): Code(s): I21.4 - Non-ST elevation (NSTEMI) myocardial infarction Status: Acute Assessment and Plan: 32-year-old male with no known prior cardiac history;? newly diagnosed diabetes mellitus, tobacco abuse.? Patient presents to the hospital with about 4-5 day history of chest pain with radiation to left arm.? No acute ST segment abnormality on the EKG.? Troponins elevated.? Patient is a smoker and his HbA1c is found to be elevated.? Clinical presentation more consistent with non ST elevation MA, although other etiologies cannot be completely ruled out. Started on standard treatment for ACS including antiplatelets, anticoagulation, beta keven, statin.? Cardiac catheterization showed: Significant obstructive 99% stenosis of the mid left circumflex s/p successful PCI with KATHY x 1. Patient to be on ASA 81mg once daily indefinitely. Loaded with Plavix 600mg x 1, continue with 75mg once daily for at least 1 year. Extensive discussion with the patient regarding indications for DAPT and consequences of stent thrombosis if noncompliance with DAPT. High intensity statin. Beta keven. TTE with normal LVEF. Referral to cardiac rehab placed. (2) Tobacco abuse: Code(s): Z72.0 - Tobacco use Status: Acute Assessment and Plan: Extensively discussed smoking cessation. (3) Diabetes mellitus: Code(s): E11.9 - Type 2 diabetes mellitus without complications Status: Acute Assessment and Plan: Patient found to be hyperglycemic during hospitalization and his HbA1c significantly elevated.? Management as per primary team.? Patient will need to establish primary care physician and an tire groover as an outpatient. (4) Marijuana abuse: Code(s): F12.10 - Cannabis abuse, uncomplicated Status: Acute Assessment and Plan: Patient advised to stop marijuana abuse.? Harmful cardiovascular effects of marijuana abuse discussed with the patient. Plan Okay for discharge home today. Subjective Date/time seen: 03/31/23 13:04 Interval history: Reason for visit: NSTEMI HPI: 32-year-old male with no known prior cardiac history;? newly diagnosed diabetes mellitus, tobacco abuse.?Patient presented to [facility] Emergency Room on 03/28/2023 with complaints of chest pain that started about 4-5 days ago.? Patient describes chest pain as burning sensation in the substernal area and left side of the chest with radiation to left arm.? He denied any associated symptoms of shortness of breath, palpitation, dizziness or syncope.? Patient states that his symptoms have been off and on for last several days, and he finally decided to come to the hospital for further evaluation.? He denies any known prior cardiac history including clinical MA. 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 He denies any calf pain or swelling. EKG on my personal interpretation shows sinus tachycardia at a heart rate of 108 beats per minute, low voltage in precordial leads.? No significant changes on the follow-up EKG.? Troponins elevated with peak troponin level of 1.8 which is trending downwards.? UDS positive for cannabinoids.? Patient was found to be hyperglycemic during hospitalization and his hB A1c is elevated at 10.7. Date of service 03/30: No longer having any chest pain. Feeling otherwise well this morning. Agreeable to cath. Date of service 03/31: Doing well today. No chest pain or other symptoms. Review of Systems Review of Systems: All systems reviewed & are unremarkable except as noted in HPI and below (HPI) Exam Const: General: comfortable and no acute distress Eyes: General: appearance normal, both eyes and all related structures Sclera: sclerae normal Resp: Effort & Inspection: normal respiratory effort Cardio: Rate: regular rate Rhythm: regular rhythm Skin: General skin exa
--- NOTE | 2023-03-31 13:18 | PM.DS ---
DS: Admitting Diagnosis Discharge Date 03/31/2023 Admitting Diagnosis Chest pain, left arm weakness. DS: Discharge Diagnosis Discharge Diagnosis (1) Chest pain: Qualifiers: Chest pain type: other chest pain Qualified Code(s): R07.89 - Other chest pain Code(s): R07.9 - Chest pain, unspecified Status: Acute Assessment and Plan: Patient presents with acute chest pain radiating to his left arm concerning for an acute coronary syndrome. Initial troponin was elevated at 1.74->1.65->1.85. Patient was admitted for NSTEMI under hospitalist service 03/30/2023 interval history: patient presented with CP is found to have NSTEMI and new onset DM, patient was taken to cath was found to have stenosis of left circumflex and had KATHY was successful, patient is clinically stable, started patient on DAPT and statin, also patient has new onset DM will be seen by medical doctor md/medical director, will monitor. (2) Elevated troponin: Code(s): R77.8 - Other specified abnormalities of plasma proteins Status: Acute Assessment and Plan: Patient denies any significant risk factors other than chronic smoking. He did present with typical chest pain radiating to the her. (3) NSTEMI, initial episode of care: Code(s): I21.4 - Non-ST elevation (NSTEMI) myocardial infarction Status: Acute Assessment and Plan: Patient was treated with early medical management. By the time of presentation is chest pain abated. Will give nitroglycerin as needed for recurrent chest pain . Patient will receive better be located with metoprolol. He received anti-platelet therapy, acute anticoagulation with heparin drip,. His serum potassium and magnesium were monitored. Cardiology has been consulted. (4) Contact with and (suspected) exposure to environmental tobacco smoke (acute) (chronic): Code(s): Z77.22 - Contact with and (suspected) exposure to environmental tobacco smoke (acute) (chronic) Status: Acute Assessment and Plan: Patient was counseled to quit smoking and started on continue replacement protocol. (5) Obesity: Code(s): E66.9 - Obesity, unspecified Status: Acute Assessment and Plan: Calorie reduction Increase physical activity after resolution of acute MT Plan Patient is a full code. Patient is admitted inpatient under hospital medicine service. Cardiology has been consulted DVT prophylaxis: Patient is already on heparin drip. DS: Summary Hospital Course Reason for hospitalization: Chest pain, left arm weakness. Narrative: This is a 32-year-old male, with with a history of chronic smoking, presenting to the emergency department complaining of chest pain for the past 3 days.? Patient describes the pain as burning, located on the left side, radiating to the left arm.? He denies any known aggravating factors, but states it does not appear to be aggravated by physical exertion.? He describes improvement of his arm pain after walking.? Today at approximately 2 PM, the pain stopped and did not recur Hospital Course: patient presented? with CP is found to have NSTEMI and new onset DM, patient was taken to cath was found to have stenosis of left circumflex and had KATHY was successful, patient is clinically stable, started patient on DAPT and statin, also patient has new onset DM will be seen by medical doctor md/medical director, will monitor. patient is clinically stable, will discharge patient on DAPT, statin and metformin to start on 04/02, glimepiride. Patient to follow discharge care instruction from his medical doctor md/medical director and follow up as scheduled, patient to follow up his primary care provider as soon as possible, patient is instructed if any symptoms worsen to go to nearest ER. Time Spent with Patient Time attestation: Total time spent providing and/or coordinating discharge services: Exam Narrative: Morbidly obese Patient is comfortable, NAD HEENT: eyes are clear and none icteric
== END 2023-03-31 13:40 | disposition home or self-care (01) | DRG 174 ==
LOC: ANHED 20:01 → ANHIMU 23:29
PROVIDERS: Chiropractor; Emergency Medicine; Internal Medicine; Nurse Practitioner; Admitting Provider Internal Medicine; Emergency Provider Preventive Medicine Aerospace Medicine; Visit Provider Family Medicine
PROC: 027034Z Dilation of Coronary Artery, One Artery with Drug-eluting Intraluminal Device, Percutaneous Approach (ICD-10-PCS; CPT 93454; principal; 2023-03-30 10:30)
PROC: 027034Z Dilation of Coronary Artery, One Artery with Drug-eluting Intraluminal Device, Percutaneous Approach (ICD-10-PCS; 2023-03-30 10:30)
PROC: 027034Z Dilation of Coronary Artery, One Artery with Drug-eluting Intraluminal Device, Percutaneous Approach (ICD-10-PCS; CPT 92928; 2023-03-30 10:30)
DX: I21.4 Non-ST elevation (NSTEMI) myocardial infarction (principal); E11.65 Type 2 diabetes mellitus with hyperglycemia; F12.10 Cannabis abuse, uncomplicated; F17.210 Nicotine dependence, cigarettes, uncomplicated; E66.9 Obesity, unspecified; Z68.37 Body mass index [BMI] 37.0-37.9, adult; R77.8 Other specified abnormalities of plasma proteins
CPT/HCPCS: 36415; 71046; 80053; 80061; 80307; 82948; 83036; 83690; 83735; 84484; 85025; 85610; 85730; 92978; 93005; 93454; 96361; 96365; 96366; 99285; A9270; C1725; C1753; C1769; C1874; C1887; C1894; C8929; C9600; G0378; G0379; J0583; J1644; J1815; J2250; J2305; J3010; J7030; J7040; Q9957

== ENCOUNTER 2023-07-23 20:50 | Emergency (ER) | payer OTHER, SELFPAY ==
[2023-07-23] VITALS (13 sets, daily range): BP systolic 111–137; BP diastolic 62–101; PULSE 82–93; RESP 12–22; TEMP 36.6; O2SAT 98–100
--- NOTE | ~2023-07-23 | CT_ITS ---
EXAMINATION: CT abdomen pelvis w con DATE: 07/23/2023 23:16 INDICATION: Chest pain. Elevated lipase. TECHNIQUE: Computed tomography (CT) of the abdomen and pelvis was performed with 100 mL Omnipaque 350 intravenous contrast. Automated exposure control and iterative reconstruction technique were employe d. The dose-length product was 1419.01 mGy-cm. COMPARISON: None. FINDINGS: The visualized portions of the lung bases demonstrate mild atelectasis. No pleural effusion . The heart size is normal. No pericardial effusion. The liver is normal. There is a gallstone in the gallbladder, which is normal in size. The spleen, adrenal glands, and kidneys are normal. There is m ild fat stranding adjacent to the head of the pancreas, consistent with acute interstitial pancreatit is. There is a left inguinal hernia containing fat. There are no dilated loops of bowel. The appendix is normal. There are no pathologically enlarged lymph nodes. There is no free intraperitoneal fluid. There is mild thoracic and lumbar spondylosis. IMPRESSION: 1. Mild findings of acute interstitial pancreatitis. 2. Cholelithiasis. Reviewed, dictated and finalized at location E. OROLOGY INSTRUCTOR
--- NOTE | ~2023-07-23 | XR_ITS ---
EXAMINATION: XR chest 1V portable DATE: 07/23/2023 22:27 INDICATION: Right arm tingling. TECHNIQUE: A single frontal view of the chest was obtained. COMPARISON: Chest 2 views 03/28/2023, CT abdomen and pelvis 07/23/2023 FINDINGS: There is no pneumonia, pleural effusion, or pneumothorax. The heart size is normal. IMPRESSION: 1. No acute cardiopulmonary disease. Reviewed, dictated and finalized at location E. ORATE DIRECTOR TALENT ASSESSMENT
--- NOTE | 2023-07-23 21:00 | ECG_ITS ---
Measurements Intervals [place] Rate: 89 P: 45 VA: 186 QRS: -20 QRSD: 95 T: 52 QT: 340 QTc: 414 Interpretive Statements SINUS RHYTHM ST ELEVATION IN DIFFUSE LEADS- CONSIDER PERICARDITIS OR EARLY REPOLARIZATION ABNORMALITY ABNORMAL ECG COMPARED TO ECG 03/30/2023 14:09:51 NO SIGNIFICANT CHANGES Electronically Signed On 07-24-2023 6:25:06 [employer] by Tray Watson D.O.
[2023-07-23 21:18] LABS: Basophils Percent Auto 0.4 % (0.2-1.2); Eosinophils Absolute Auto 0.1 K/mm3 (0-0.3); Eosinophils Percent Auto 1.1 % (0-4.4); Hematocrit 43.7 % (42.0-52.0); Hemoglobin 13.8 g/dL (14.0-18.0); Immature Granulocyte Absolute 0.01 K/mm3 (0.00-0.031); Immature Granulocyte Percent A 0.1 % (0-0.5); Lymphocytes Percent Auto 52.4 % (18.3-44.2); Mean Corpuscular HGB Conc 31.6 g/dl (32-36); Mean Corpuscular Hemoglobin 26.6 pg (26-34); Mean Corpuscular Volume 84.2 fl (80-100); Mean Platelet Volume 9.5 fl (7.4-10.4); Monocytes Absolute Auto 0.7 K/mm3 (0.1-0.6); Monocytes Percent Auto 6.6 % (2.6-8.5); Neutrophils Percent Auto 39.4 % (45.5-73.1); Platelet Count Result 300 k/mm3 (150-375); Red Blood Count 5.19 M/mm3 (4.6-6.20); Red Cell Distribution Width 14.1 % (11.5-14.5); White Blood Count 10.1 K/mm3 (4.5-10.0)
[2023-07-23 21:28] LABS: Alanine Aminotransferase 44 U/L (6-50); Albumin Level 4.6 g/dL (3.5-5.1); Alkaline Phosphatase 71 U/L (38-126); Anion Gap 12 mmol/L (8-16); Aspartate Amino Transferase 40 U/L (17-59); Bilirubin,Total 0.4 mg/dL (0.2-1.3); Blood Urea Nitrogen 15 mg/dL (9-20); Calcium 9.8 mg/dL (8.4-10.2); Carbon Dioxide 31 mmol/L (22-30); Chloride 97 mmol/L (98-107); Estimated CRCL calculation 148 ml/min; Estimated Glomerular Filt Rate > 60; Glucose 244 mg/dL (65-110); Lipase 1061 U/L (23-300); Potassium 4.1 mmol/L (3.4-5.0); Sodium 140 mmol/L (137-145)
[2023-07-23 21:30] LABS: INR 0.9; Prothrombin Time 12.7 Seconds (11.1-14.7)
[2023-07-23 21:31] LABS: Partial Thromboplastin Time 27.5 SECONDS (22.3-36.8)
[2023-07-23 21:40] LABS: Troponin I < 0.012 ng/mL (0.000-0.034)
--- NOTE | 2023-07-23 22:41 | ED.GENADULT ---
HPI - General Adult General Chief complaint: Extremity Problem,Nontraumatic Stated complaint: right arm feels funny Time Seen by Provider: 07/23/23 22:09 History of Present Illness HPI narrative: Patient is 32-year-old gentleman who presents the emergency department with chief complaint of right forearm discomfort. The patient states that yesterday started having discomfort in his right upper extremity. The patient denied chest pain when he works he had not have a feeling in the epigastric region. Related Data Home Medications Medication Instructions Recorded Confirmed sertraline 50 mg tablet mg 07/23/23 Allergies Allergy/AdvReac Type Severity Reaction Status Date / Time No Known Allergies Allergy Verified 07/23/23 20:51 Review of Systems Review of Systems: A 10 system review of systems was completed on the patient and is negative except for what is stated in the HPI. Nursing and ancillary documentation was reviewed. PMFSH Past Medical History Medical History No significant past medical history Surgical History Surgical History No significant past surgical history Family History Family History Mother Diabetes mellitus Cerebrovascular accident Acute myocardial infarction Father Cerebrovascular accident Acute myocardial infarction Gangrene Social History Social History Smoking packs per day: 0.5 Smoking cigarettes per day: 10.0 Years smoked: 15 Smoking pack-years: 7.50 Smoking status: Current every day smoker Tobacco type: cigarettes Alcohol intake: never Substance use: current Substance use type: marijuana Last use: 03/28/23 Lack of Transportation: No Lack of Food: Never True Current Housing: I Have Housing Concerned About Future Housing: No Difficulty Paying Gas/Electric Bills: No Difficulty Paying for Meds: No Currently Unemployed: No Education: High School Diploma/GED Difficulty w/ Childcare or Family Care: No Spiritual care concerns: No Exam Narrative: GENERAL: Well-appearing, well-nourished, and in no acute distress. HEAD: Normocephalic, atraumatic. EYES: PERRLA and EOMI. ENT: Nares clear, no rhinorrhea or epistaxis. Mucous membranes moist. NECK: Supple. CHEST: Clear to auscultation. No respiratory distress. HEART: Regular rate and rhythm. No murmur heard. Normal peripheral pulses. ABDOMEN: Soft, nontender, nondistended, normal active bowel sounds. EXTREMITIES: Normal range of motion. No edema. SKIN: Warm, dry, no rash. NEURO: No focal deficits. Alert and oriented x3. PSYCH: Normal mood and affect. Course Vital Signs Vital signs: Vital Signs Temperature 36.6 C 07/23/23 20:52 Pulse Rate 93 07/23/23 20:52 Respiratory Rate 16 07/23/23 20:52 Blood Pressure 137/101 H 07/23/23 20:52 Pulse Oximetry 100 07/23/23 20:52 Oxygen Delivery Room Air 07/23/23 20:52 Temperature 36.6 C 07/23/23 20:52 Pulse Rate 94 07/24/23 00:39 Respiratory Rate 20 07/24/23 00:39 Blood Pressure 144/77 H 07/24/23 00:39 Pulse Oximetry 100 07/24/23 00:39 Oxygen Delivery Room Air 07/23/23 22:15 Medical Decision Making [facility] Narrative Medical decision making narrative: Differential diagnosis includes ACS, pancreatitis, arm pain, Laboratory studies were obtained on the patient which showed a normal CBC electrolytes are within normal limits lipase was slightly elevated at 1061 EKG showed no acute ischemic changes Chest x-ray showed no focal infiltrate CT scan of the abdomen pelvis showed no acute abnormalities other than noted cholelithiasis without evidence of cholecystitis Vital Signs Vital Signs: Vital Signs Temperature 36.6 C 07/23/23 20:52
[2023-07-24] VITALS (11 sets, daily range): BP systolic 144; BP diastolic 77; PULSE 77–94; RESP 16–24; O2SAT 98–100
[2023-07-24 01:04] LABS: Troponin I < 0.012 ng/mL (0.000-0.034)
== END 2023-07-24 02:00 | disposition home or self-care (01) ==
PROVIDERS: Emergency Provider Emergency Medicine
DX: M79.631 Pain in right forearm (principal); K80.20 Calculus of gallbladder without cholecystitis without obstruction; R74.8 Abnormal levels of other serum enzymes; F17.210 Nicotine dependence, cigarettes, uncomplicated; R94.31 Abnormal electrocardiogram [ECG] [EKG]
CPT/HCPCS: 36415; 71045; 74177; 80053; 83690; 84484; 85025; 85610; 85730; 93005; 99284; Q9967

== ENCOUNTER 2024-01-04 16:14 | Emergency (ER) | payer OTHER, SELFPAY ==
[2024-01-04 16:19] VITALS: BP 143/78; PULSE 99; RESP 16; TEMP 36.5; O2SAT 99
[2024-01-04 16:21] LABS: Glucose Point of Care 285 mg/dl (65-105)
--- NOTE | 2024-01-04 17:41 | ED.GENADULT ---
HPI - General Adult General Chief complaint: Weakness Stated complaint: I feel extremely weak Time Seen by Provider: 01/04/24 17:30 Source: patient Mode of arrival: ambulatory Limitations: no limitations History of Present Illness HPI narrative: This is a 33-year-old male with PMH of diabetes, CAD who presents to the ED with chief complaint of fatigue for the past 2 weeks. Reports they have been increasing his work hours and he is working around 6 days a week working for the [employer]. 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 He had an episode of lightheadedness yesterday but did not have any syncope. Patient states that he has been taking his diabetes medications and other medications as prescribed. Blood glucose on arrival is 285 but states he just had ice cream prior to coming in. Denies any chest pain, syncope, vomiting, sweats, shortness of breath, abdominal pain, vomiting, diarrhea. Denies any bleeding symptoms. Related Data Home Medications Medication Instructions Recorded Confirmed sertraline 50 mg tablet mg 07/23/23 Allergies Allergy/AdvReac Type Severity Reaction Status Date / Time No Known Allergies Allergy Verified 07/23/23 20:51 Review of Systems Review of Systems: All systems as dictated in [facility] Past Medical History Medical History No significant past medical history Surgical History Surgical History No significant past surgical history Family History Family History Mother Diabetes mellitus Cerebrovascular accident Acute myocardial infarction Father Cerebrovascular accident Acute myocardial infarction Gangrene Social History Social History Smoking packs per day: 0.5 Smoking cigarettes per day: 10.0 Years smoked: 15 Smoking pack-years: 7.50 Smoking status: Current every day smoker Tobacco type: cigarettes Alcohol intake: never Substance use: current Substance use type: marijuana Last use: 03/28/23 Lack of Transportation: No Lack of Food: Never True Current Housing: I Have Housing Concerned About Future Housing: No Difficulty Paying Gas/Electric Bills: No Difficulty Paying for Meds: No Currently Unemployed: No Education: High School Diploma/GED Difficulty w/ Childcare or Family Care: No Spiritual care concerns: No Exam Narrative: GENERAL: Well-appearing, well-nourished, and in no acute distress. HEAD: Normocephalic, atraumatic. EYES: PERRLA and EOMI. ENT: Nares clear, no rhinorrhea or epistaxis. Mucous membranes moist. Oropharynx without tonsillar hypertrophy exudate or other lesions. NECK: Supple. No adenopathy or masses. CHEST: No respiratory distress. Clear to auscultation. No wheezes rales or rhonchi HEART: Regular rate and rhythm. No murmur heard. Normal peripheral pulses. ABDOMEN: Soft, nontender, nondistended, normal active bowel sounds. MSK: Normal range of motion. No edema. SKIN: Warm, dry, no rash. NEURO: Alert and oriented x3. No focal deficits. PSYCH: Normal mood and affect. Course Vital Signs Vital signs: Vital Signs Temperature 97.7 F 01/04/24 16:19 Pulse Rate 99 01/04/24 16:19 Respiratory Rate 16 01/04/24 16:19 Blood Pressure 143/78 H 01/04/24 16:19 Pulse Oximetry 99 01/04/24 16:19 Temperature 97.7 F 01/04/24 16:19 Pulse Rate 99 01/04/24 16:19 Respiratory Rate 16 01/04/24 16:19 Blood Pressure 143/78 H 01/04/24 16:19 Pulse Oximetry 99 01/04/24 16:19 Medical Decision Making MDM Narrative Medical decision making narrative: This is a 33-year-old male who presents to the ED with chief complaint of generalized fatigue for the past 2 weeks. He has been working 6 da
== END 2024-01-04 17:57 | disposition home or self-care (01) ==
PROVIDERS: Emergency Provider Physician Assistant
DX: R53.83 Other fatigue (principal); I25.10 Atherosclerotic heart disease of native coronary artery without angina pectoris; E11.9 Type 2 diabetes mellitus without complications; F17.210 Nicotine dependence, cigarettes, uncomplicated; Z79.84 Long term (current) use of oral hypoglycemic drugs
CPT/HCPCS: 82948; 99282

== ENCOUNTER 2024-12-09 20:19 | Emergency (ER) | payer OTHER, MEDICAID, SELFPAY ==
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
--- OUTSIDE RECORDS SUMMARY | 2024-12-09 20:22 | XMS_ITS | Encounter Summary ---
Author Organization [facility] Address [address] [place] [address] Phone Care Team Providers Care Community Relations Representative Name Role Phone No, Physician Primary Care Provider [phone] Judy Gil MERCHANDISING CONSULTANT Primary Care Provider Encounter Details Date Type Department Care Team (Latest Contact Info) Description 03/31/2023 Orders Only [facility]Y Scanning, Provider Social History Tobacco Use Types Packs/Day Years Used Date Smoking Tobacco: Never Assessed Sex and Gender Information Value Date Recorded Sex Assigned at Not on file Legal Sex Male 2:38 PM CDT Gender Identity Not on file Sexual Orientation Not on file documented as of this encounter Plan of Treatment Not on file documented as of this encounter Procedures Procedure Name Priority Date/Time Associated Diagnosis Comments SCAN - LABS 03/31/2023 documented in this encounter Results * SCAN - LABS (03/31/2023) us Provider Scanning Edited Result - Final documented in this encounter Visit Diagnoses Not on filedocumented in this encounter Care Teams Community Relations Representative Relationship Specialty Start Date End Date No, Physician PCP - General 03/29/23 05/24/24 Judy Gil NP [id number] IM GENERAL MED, [address] [place] [address] PCP - General Nurse Practitioner 05/25/24 documented as of this encounter
--- OUTSIDE RECORDS SUMMARY | 2024-12-09 20:22 | XMS_ITS | Referral Summary ---
Author Organization [facility] Address [address] [place] [address] Care Team Providers Care Enterprise Security Architect Name Role Phone Judy Gil BRANCH BILLING PAYROLL CLERK Primary Care Provider Allergies No known active allergies Medications aspirin 81 MG oral suspension 3 Active metFORMIN (GLUCOPHAGE) 1,000 mg tablet Take 1 tablet (1,000 mg total) by mouth 2 (two) times a day with meals 180 tablet 4 Active blood glucose diagnostic (glucose blood) strip Fasting in AM, with meals and at night before bed 100 each 4 Active insulin glargine 100 unit/mL (3 mL) pen for injectionIndica tions:Type 2 diabetes mellitus without complication, without long-term current use of insulin ([facility]) Inject 10 Units under the skin nightly 3 mL 1 4 Active Additional Information Patient not taking.Reported on 07/18/2024 pen needle, diabetic (Pen Needle) 32 gauge x /32 needleIndicatio ns:Type 2 diabetes mellitus without complication, without long-term current use of insulin (HCC) Use with Lantus as directed. 100 each 4 Active clopidogreL (PLAVIX) 75 mg tablet Take 1 tablet (75 mg total) by mouth daily 30 tablet 6 4 Active rosuvastatin (Crestor) 40 mg tablet Take 1 tablet (40 mg total) by mouth daily 30 tablet 6 4 Active metoprolol XL (TOPROL-XL) 25 mg extended release tablet TAKE 1 TABLET(25 MG) BY MOUTH DAILY 90 tablet 3 4 Active Active Problems Problem Noted Date Diagnosed Date Anxiety 05/24/2024 Overview (05/25/2024): -sertraline 50mg -started for anxiety last February -he has been out for 2 months -the medication was helpful -increasing anxiety without medication -starting to aggravate him -at first he denied previous side effects but when reviewing side effects to restart medications he did mention decreased libido He still wishes to restart medication, restart sertraline 50mg daily, reviewed side effects. Mixed anxiety and depressive disorder 04/13/2023 Type 2 diabetes mellitus 04/13/2023 Overview (05/25/2024): -metformin but unsure of dose -out of medications for 2 months -not checking blood sugar at home -no prior medications A1c today, will discuss medications after results. History of myocardial infarction 04/13/2023 Overview (05/25/2024): -[place] 03/2023, stent placed in [facility] -he has not followed up with cardiology since stent was placed due to work schedule -he is taking aspirin, plavix, pravastatin, metoprolol -he denies CP -a few days ago he was sitting in the hot truck with bullet vest on and took a second to catch his breath but he took his vest off and symptoms resolved -he reports he has all of his cardiac medications He has a cardiology appointment scheduled in July. Immunizations Immunization Administration Dates Next Due DTP 04/15/1997, 5,08/17/1992,05/27/1992,0 02/08/1992 Hep B, Adolescent or Pediatric 01/23/2002,1997,11/15/1997,04/15/1997 HiB 05/05/1993,08/27/1992,05/27/1992 ,02/08/1992 IPV 04/15/1997,01/11/1995,05/27/1992 ,02/08/1992 MMR 04/15/1997,08/20/1993 Varicella 08/06/1998 Social History Tobacco Use Types Packs/Day Years Used Date Smoking Tobacco: Every Day Cigarettes Smokeless Tobacco: Never Tobacco Cessation:Ready to Q uit: Yes; Counseling Given: Yes Sex and Gender Information Value Date Recorded Sex Assigned at Not on file Legal Sex Male 2:38 PM CDT Gender Identity Not on file Sexual Orientation Not on file Last Filed Vital Signs Vital Sign Reading Time Taken Comments Blood Pressure 122/77 07/18/2024 1:10 PM LEGAL RECORDS MANAGER Pulse 103 07/18/2024 1:10 PM LEGAL RECORDS MANAGER Temperature 36.6 C (97.9 F) 05/24/2024 10:48 AM CDT Respiratory Rate - - Oxygen Saturation 98% 07/18/2024 1:10 PM LEGAL RECORDS MANAGER Inhaled Oxygen Concentration - - Weight 117.1 kg (258 lb 3.2 oz) 07/18/2024 1:10 PM LEGAL RECORDS MANAGER Height 170.2 cm (5' 7 ) 07/18/2024 1:10 PM LEGAL RECORDS MANAGER Body Mass Index 40.44 07/18/2024 1:10 PM LEGAL RECORDS MANAGER Plan of Treatment Not on file Procedures Procedure Name Priority Date/Time Associated Diagnosis Comments EGFR Routine 05/24/2024 11:40 AM CDT Encounter to establish care HEMOGLOBIN A1C Routine 05/24/2024 11:40 AM CDT Encounter to establish care LIPID PANEL Routine 05/24/2024 11:40 AM CDT Encounter to establish care from Last 3 Months or Most Recently Relevant to Health Maintenance Results * eGFR (05/24/2024 11:40 AM CDT) eGFR >90 >=60 mL/min/1. 73 m2 Comment: Interpretive Data Reference Interval Normal >/= 90 mL/min/1.73m2 Mildly decreased* 60 - 89 mL/min/1.73m2 Mildly to moderately decreased 45 - 59 mL/min/1.73m2 Moderately to severely decreased 30 - 44 mL/min/1.73m2 Severely decreased 15 - 29 mL/min/1.73m2 Kidney Failure < 15 mL/min/1.73m2 *Relative to young adult level Estimated glomerular filtration rate is determined by the 2020 CKD-EPI equation recommended by the National Kidney Foundation (A Unifying Approach to GFR Estimation: Recommendations of the NKF-ASK Task Force on Reassessing the Inclusion of Race in Diagnosing Kidney Disease, JASN 2020). The CKD-EPI equation should not be used for patients with unstable renal function and has not been validated in children and those over 70. Current interpretive data was last reviewed 2021. Blood 05/24/2024 11:4 0 AM CDT 05/24/2024 12:09 PM CDT Judy Gil NP LAB BLOOD ORDERABLES Fi nal Result Performing Organization Address City/[facility] Co de Phone Number [facility] [place] [address] * (ABNORMAL) Hemoglobin A1c (05/24/2024 11:40 AM CDT) Hgb A1C 12.0(H) 4.0 - 5.6 % Estimated Average Glucose 298 mg/dL [facility] Comment: The ADA recommends reporting an estimated Average Glucose (eAG) with all Hemoglobin A1c results using the equation derived from a study of 507 normal and diabetic adults. Minority populations were underrepresented and children were not included. (Diabetes Care 2020; 43(S1): S66-S76). The eAG is not equivalent to a fasting glucose. Blood 05/24/2024 11:4 0 AM CDT 05/24/2024 12:03 PM CDT Judy Gil NP LAB BLOOD ORDERABLES Fi nal Result Performing Organization Address [facility] Co de Phone Number [facility] [place] [address] * Lipid panel (05/24/2024 11:40 AM CDT) Cholesterol 117 30 - 199 mg/dL Comment: Interpretive Data Ages < or = 19 years Acceptable: <170 mg/dL Borderline high: 170-199 mg/dL High: >or= 200 mg/dL Ages > or = 20 years Desirable: <200 mg/dL Borderline high: 200-239 mg/dL High: >or= 240 mg/dL Literature References: 1. Expert Panel on Integrated Guidelines for Cardiovascular Health and Risk Reduction in Children and Adolescents. Pediatrics 2011;128:S213 2. NCEP Expert Panel. Circulation 2004;110:227 Current Interpretive Data was last revised on 2018. Triglycerides 91 <=149 mg/dL [facility] Comment: Interpretive Data Ages < or = 9 years Acceptable: <75 mg/dL Borderline high: 75-99 mg/dL High: >or= 100 mg/dL Ages 10 to 20 years Acceptable: <90 mg/dL Borderline high: 90-129 mg/dL High: >or= 130 mg/dL Ages > or = 20 years Desirable: <150 mg/dL Borderline high: 150-199 mg/dL High: 200-499 mg/dL Very high: >or= 499 mg/dL Literature References: 1. Expert Panel on Integrated Guidelines for Cardiovascular Health and Risk Reduction in Children and Adolescents. Pediatrics 2011;128:S213 2. NCEP Expert Panel. Circulation 2004;110:227 Current Interpretive Data was last revised on 2018. HDL 40 >=40 mg/dL [facility] Comment: Interpretive Data Ages < or = 19 years Acceptable: >45 mg/dL Borderline low: 40-45 mg/dL Low: <40 mg/dL Ages > or = 20 years Desirable: >or= 60 mg/dL Low: <40 mg/dL Literature References: 1. Expert Panel on Integrated Guidelines for Cardiovascular Health and Risk Reduction in Children and Adolescents. Pediatrics 2011;128:S213 2. NCEP Expert Panel. Circulation 2004;110:227 Current Interpretive Data was last revised on 2018. LDL, calculated 59 <=129 mg/dL [facility] Comment: Interpretive Data Ages < or = 19 years Acceptable: <110 mg/dL Borderline high: 110-129 mg/dL High: >or= 130 mg/dL Ages > or = 20 years Optimal: <100 mg/dL Near optimal: 100-129 mg/dL Borderline high: 130-159 mg/dL High: >160 mg/dL Calculated using the Campbell LDL-C estimating equation. This equation was implemented on 2024. Prior to this date LDL-C was estimated using the Friedewald equation. Literature References: 1. Expert Panel on Integrated Guidelines for Cardiovascular Health and Risk Reduction in Children and Adolescents. Pediatrics 2011;128:S213 2. NCEP Expert Panel. Circulation 2004;110:227 3. Adrian Dow et al. KEON Cardiol. 2020 January 10;5(5):540-548. doi: 10.1001/jamacardio.2020.0013 Current Interpretive Data was last revised on 2024. Non-HDL Cholesterol 77 mg/dL [facility] Comment: Interpretive Data Ages < or = 19 years Acceptable: <120 mg/dL Borderline high: 120-144 mg/dL High: >145 mg/dL Ages > or = 20 years When triglycerides are >200 mg/dL, Non-HDL cholesterol is a secondary target of therapy with treatment goals that are 30 mg/dL greater than the LDL cholesterol target. Literature References: 1. Expert Panel on Integrated Guidelines for Cardiovascular Health and Risk Reduction in Children and Adolescents. Pediatrics 2011;128:S213 2. NCEP Expert Panel. Circulation 2004;110:227 Current Interpretive Data was last revised on 2018. Chol/HDL ratio 3 [facility] Blood 05/24/2024 11:4 0 AM CDT 05/24/2024 12:03 PM CDT Judy Gil NP LAB BLOOD ORDERABLES nal Result [facility] One [facility] Department [place] [address] from Last 3 Months or Most Recently Relevant to Health Maintenance Insurance [facility] Care Teams Enterprise Security Architect Relationship Specialty Start Date End Date Judy Gil NP [id number] [facility] [address] IM GENERAL MED, [address] [place] [address] PCP - General Nurse Practitioner 05/25/24
--- OUTSIDE RECORDS SUMMARY | 2024-12-09 20:23 | XMS_ITS | Clinical Summary ---
Author Organization [facility] Address [address] [place] [address] Care Team Providers Care Histotechnician Name Role Phone Judy Gil FIELD CASHIER Primary Care Provider Allergies No known active [...] History of myocardial infarction 04/13/2023 Overview (05/25/2024): -[place] 03/2023, stent placed in [facility] -he has not followed up with [...] IPV 04/15/1997,01/11/1995,05/27/1992 ,02/08/1992 MMR 04/15/1997,08/20/1993 Varicella 08/06/1998 Medical History Medical History Date Comments Coronary artery disease Diabetes (HCC) Family History Medical History Relation Name Comments Heart attack Father Hypertension Father Stroke Father Cardiac arrest (HCC) Mother Diabetes Mother Heart attack Mother Hypertension Mother Stroke Mother Relation Name Status Comments Father Mother Social History Tobacco Use Types Packs/Day Years Used Date Smoking Tobacco: Every Day Cigarettes Smokeless Tobacco: Never Tobacco Cessation:Ready to Q uit: Yes; Counseling Given: Yes Sex and Gender Information Value Date Recorded Sex Assigned at Not on file Legal Sex Male 2:38 PM CDT Gender Identity Not on file Sexual Orientation Not on file Obstetrics History Last Filed Vital Signs Vital Sign Reading Time Taken Comments Blood Pressure 122/77 07/18/2024 1:10 PM REJECT OPENER Pulse 103 07/18/2024 1:10 PM REJECT OPENER Temperature 36.6 C (97.9 F) 05/24/2024 10:48 AM CDT Respiratory Rate - - Oxygen Saturation 98% 07/18/2024 1:10 PM REJECT OPENER Inhaled Oxygen Concentration - - Weight 117.1 kg (258 lb 3.2 oz) 07/18/2024 1:10 PM REJECT OPENER Height 170.2 cm (5' 7 ) 07/18/2024 1:10 PM REJECT OPENER Body Mass Index 40.44 07/18/2024 1:10 PM REJECT OPENER Plan of Treatment Health Maintenance Due Date Last Done Comments Albumin Creatinine Ratio, Urine 1991 Depression Screening 1991 Hepatitis C Screening 1991 Dilated Eye Exam 1991 Foot Exam 1991 Varicella Vaccines (2 of 2 - 2-dose childhood series) 10/29/1998 08/06/1998 DTaP/Tdap/Td Vaccine (6 - Tdap) 11/29/2002 04/15/1997, 01/11/1995, 08/17/1992, Additional history exists Regular Well Visit/Exam 18-64 11/29/2009 Pneumococcal vaccine <65 (1 of 2 - PCV) 11/29/2010 Influenza Vaccine (#1) 2024 Hemoglobin A1C 11/21/2024 05/24/2024 Lipid Panel 05/24/2025 05/24/2024 eGFR 05/24/2025 05/24/2024 Hepatitis B Screening Completed 01/23/2002 , 08/06/1998, 11/15/1997, Additional history exists HPV Vaccines Aged Out No longer eligi ble based on patient's age to complete this topic Procedures Procedure Name Priority Date/Time Associated Diagnosis [...] of Race in Diagnosing Kidney Disease, JASN 202). The CKD-EPI equation should not be used for patients with unstable renal function and has not been validated in children and those over 70. Current interpretive data was last reviewed 2021. Blood 05/24/2024 11:4 0 AM CDT 05/24/2024 12:09 PM CDT us Judy Gil NP LAB BLOOD ORDERABLES Fi nal Result [facility] One [facility] Department [place] [address] * (ABNORMAL) Hemoglobin A1c (05/24/2024 11:40 AM CDT) Hgb A1C 12.0(H) 4.0 - 5.6 % Estimated Average Glucose 298 mg/dL [facility] Comment: The ADA recommends reporting an estimated Average Glucose (eAG) with all Hemoglobin A1c results using the equation derived from a study of 507 normal and diabetic adults. Minority populations were underrepresented and children were not included. (Diabetes Care 2020; 43(S1): S66-S76). The eAG is not equivalent to a fasting glucose. Blood 05/24/2024 11:4 0 AM CDT 05/24/2024 12:03 PM CDT us Judy Gil NP LAB BLOOD ORDERABLES Fi nal Result [facility] Department [place] [address] * Lipid panel (05/24/2024 11:40 AM CDT) [...] revised on 2018. Triglycerides 91 <=149 mg/dL [facility] Comment: Interpretive Data Ages < or [...] revised on 2018. HDL 40 >=40 mg/dL [facility] Comment: Interpretive Data Ages < or [...] 2018. LDL, calculated 59 <=129 mg/dL [facility] Comment: Interpretive Data Ages < or = 19 years Acceptable: <110 mg/dL Borderline high: 110-129 mg/dL High: >or= 130 mg/dL Ages > or = 20 years Optimal: <100 mg/dL Near optimal: 100-129 mg/dL Borderline high: 130-159 mg/dL High: >160 mg/dL Calculated using the Adrian LDL-C estimating equation. This equation was implemented on 2024. Prior to this date LDL-C was estimated using the Friedewald equation. Literature References: 1. Expert Panel on Integrated Guidelines for Cardiovascular Health and Risk Reduction in Children and Adolescents. Pediatrics 2011;128:S213 2. NCEP Expert Panel. Circulation 2004;110:227 3. Adrian Dow et al. KEON Cardiol. 2019January 10;5(5):540-548. doi: 10.1001/jamacardio.2020.0013 Current Interpretive Data was last revised on 2024. Non-HDL Cholesterol 77 mg/dL [facility] Comment: Interpretive Data Ages < or = [...] last revised on 2018. Chol/HDL ratio 3 [facility] Blood 05/24/2024 11:4 0 AM CDT 05/24/2024 12:03 PM CDT us Judy Gil FIELD CASHIER LAB BLOOD ORDERABLES nal Result [facility] One [facility] Department [place] [address] from Last 3 Months or Most Recently Relevant to Health Maintenance Insurance [facility] Care Teams Histotechnician Relationship Specialty Start Date End Date Judy Gil NP [id number] [facility] [address] GENERAL MED, [facility] [place] [place] [address] PCP - General Nurse Practitioner 05/25/24
--- OUTSIDE RECORDS SUMMARY | 2024-12-09 20:23 | XMS_ITS | Encounter Summary ---
Author Organization [place] [facility] Address [address] [place] [address] Phone Care Team Providers Care Soda Room Operator Name Role Phone No, Physician Primary Care Provider [phone] Judy Gil NP Primary Care Provider Encounter Details Date Type Department Care Team (Latest Contact Info) Description 07/23/2023 Orders Only OLEARY IM CARDIOLOGY Scanning, Provider [...] Priority Date/Time Associated Diagnosis Comments SCAN - RADIOLOGY/IMAGING 07/23/2023 CARDIOLOGY DOCUMENT SCAN 07/23/2023 documented in this encounter Results * Cardiology Document Scan (07/23/2023) Anatomical Region Laterality Modality Other us Provider Scanning CV CARDIAC SERVICES PROCEDURES Final Result * SCAN - RADIOLOGY/IMAGING (07/23/2023) Anatomical Region Laterality Modality Other us Provider Scanning Edited Result - Final documented in this encounter Visit Diagnoses Not on filedocumented in this encounter Care Teams Soda Room Operator Relationship Specialty Start Date End Date No, Physician PCP - General 03/29/23 05/24/24 Judy Gil NP [address] [facility] [address] [place] [address] PCP - General Nurse Practitioner 05/25/24 documented as of this encounter
--- OUTSIDE RECORDS SUMMARY | 2024-12-09 20:23 | XMS_ITS | Data Portability ---
Author Organization [facility] Address [address] [facility] [place] [address] Assessment No assessment recorded. Plan of Treatment Reminders Order Date Submit Date Provider Last Modified By Organization Details Last Modified Time Details Appointments None record ed. Lab HbA1c (hemog lobin A1c), blood 2023 024 [email or web address] In-Office Order, Internal Use Only DO Not Attach Compendium DO Not Attach Compendium, Do Not Delete/merge, [id number] 11:00:07 lipid panel, serum 2022 023 [facility], [address], [place], [address], 3 06:14:26 CMP, serum or plasma 2022 023 [facility], [address], [place], [address], 3 06:14:26 TSH, ultra- sensit eugenio, serum 2022 023 [facility], [address], [place], [address], 3 09:16:42 albumi n/crea tinine , mass ratio, urine 2022 023 [facility], [address], [place], [address], 3 09:16:41 HbA1c (hemog lobin A1c), blood 2022 023 [place] In-Office Order, Internal Use Only DO Not Attach Compendium DO Not Attach Compendium, Do Not Delete/merge, [id number] 13:14:09 CBC w/ auto diff 2022 023 [place] [facility], [address], [address] [facility], [place], [address], 3 06:14:27 Referral behavi oral health referr al 2022 023 [facility], [address] [place] [address] Dr, [place], [address], 3 10:16:29 Procedures None record ed. Surgeries None record ed. Imaging None record ed. Medication Orders metfor min 1,000 mg tablet 2022 023 [facility] [place] [address], [place], [address], 3 11:04:07 sertra line 50 mg tablet 2022 023 [facility] [place] [address], [place], [address], 11:04:07 Patient TargetsNo targets recorded. Patient Instructions Encounter Date Encounter Id Patient Instructions Last Modified By Organization Details Last Modified Time 04/13/2023 [id number] A healthy lifestyle: care instructions [email or web address] Not available 04/13/2023 11:04:02 smoking cessatio n counseling, greater than 3 minutes up to 10 minutes* [email or web address] Not available 04/13/2023 11:49:36 Attending Physician Attestation I personally saw and examined the patient with the resident. I have reviewed the documentation and agree with the history, physical findings, work-up, and medical decision making as recorded. Dorothy Montoya MD [email or web address] Not available 04/18/2023 15:25:26 01/03/2024 [id number] A healthy lifestyle: care instructions [email or web address] Not available 01/03/2024 11:00:06 smoking cessatio n counseling, greater than 3 minutes up to 10 minutes* [email or web address] Not available 01/03/2024 13:35:11 On the date of this encounter, I was immediately available to assist the resident/fellow in the care of the patient, and have reviewed and agree with the resident s findings and plan of care. ~MD azeem [email or web address] Not available 01/03/2024 10:43:14 Reason for Referral Behavioral Health Referral f or Mixed anxiety and depressive disorder Referring Physician: Emily Rocha, Oxygen System Tester, Encounter Date: 04/13/2023 Results Created Date Observation Date Name Description Value Unit Range Abnormal Flag Note LastModifiedBy Organization Detail LastModifiedTime 04/13/2004/14/2023 LIPID PANEL WITH LDL/H DL RATIO cholesterol, total 103 mg/dL 100-19 9 Not Available [facility] ([facility]) [address] [place], [address], 04/14/2023 06:14:26 04/13/2004/14/2023 LIPID PANEL WITH LDL/H DL RATIO triglyceride s 61 mg/dL 0-149 Not Available [facility] ([facility]) [address] [place], [address], 04/14/2023 06:14:26 04/13/2004/14/2023 LIPID PANEL WITH LDL/H DL RATIO HDL cholesterol 43 mg/dL >39 Not Available [facility] ([facility]) [address] [place], [address], 04/14/2023 06:14:26 04/13/2004/14/2023 LIPID PANEL WITH LDL/H DL RATIO VLDL cholesterol angela 14 mg/dL 5-40 Not Available [facility] ([facility]) [address] [place], [address], 04/14/2023 06:14:26 04/13/2004/14/2023 LIPID PANEL WITH LDL/H DL RATIO LDL chol calc ([facility]) 46 mg/dL 0-99 Not Available [facility] ([facility]) [address] [place], [address], 04/14/2023 06:14:26 04/13/20 23 04/14/2023 LIPID PANEL WITH LDL/H DL RATIO LDL/HDL ratio 1.1 ratio 0.0-3. 6 LDL/H DL Ratio Men Women 1/2 Avg.R isk 1.0 1.5 Avg.R isk 3.6 3.2 2X Avg.R isk 6.2 5.0 3X Avg.R isk 8.0 6.1 Not Available [facility] ([facility]) [address] [place], [address], 04/14/2023 06:14:26 04/13/20 23 04/14/2023 COMP. METAB OLIC PANEL (14) glucose 159 mg/dL 70-99 above high normal Not Available [facility] ([facility]) [address] [place], [address], 04/14/2023 06:14:26 04/13/20 23 04/14/2023 COMP. METAB OLIC PANEL (14) BUN 9 mg/dL 6-20 Not Available [facility] ([facility]) [address] [place], [address], 04/14/2023 06:14:26 04/13/20 23 04/14/2023 COMP. METAB OLIC PANEL (14) creatinine 0.85 mg/dL 0.76-1 .27 Not Available [facility] ([facility]) [address] [place], [address], 04/14/2023 06:14:26 04/13/20 23 04/14/2023 COMP. METAB OLIC PANEL (14) eGFR 119 mL/mi n/1.7 3 >59 Not Available [facility] ([facility]) [address] [place], [address], 04/14/2023 06:14:26 04/13/20 23 04/14/2023 COMP. METAB OLIC PANEL (14) BUN/creatini ne ratio 11 9-20 Not Available [facility] ([facility]) [address] [facility], [place], [address], 04/14/2023 06:14:26 04/13/20 23 04/14/2023 COMP. METAB OLIC PANEL (14) sodium 140 mmol/ L 134-14 4 Not Available [facility] ([facility]) [address] [facility] [place], [address], 04/14/2023 06:14:26 04/13/20 23 04/14/2023 COMP. METAB OLIC PANEL (14) potassium 4.4 mmol/ L 3.5-5. 2 Not Available [facility] ([facility]) [address] [facility], [place], [address], 04/14/2023 06:14:26 04/13/20 23 04/14/2023 COMP. METAB OLIC PANEL (14) chloride 101 mmol/ L 96-106 Not Available [facility] ([facility]) [address] [facility], [place], [address], 04/14/2023 06:14:26 04/13/20 23 04/14/2023 COMP. METAB OLIC PANEL (14) carbon dioxide, total 25 mmol/ L 20-29 Not Available [facility] ([facility]) [address] [facility], [place], [address], 04/14/2023 06:14:26 04/13/20 23 04/14/2023 COMP. METAB OLIC PANEL (14) calcium 9.9 mg/dL 8.7-10 .2 Not Available [facility] ([facility]) [address] [facility] [place], [address], 04/14/2023 06:14:26 04/13/20 23 04/14/2023 COMP. METAB OLIC PANEL (14) protein, total 7.2 g/dL 6.0-8. 5 Not Available [facility] ([facility]) [address], [place], [address], 04/14/2023 06:14:26 04/13/20 23 04/14/2023 COMP. METAB OLIC PANEL (14) albumin 4.2 g/dL 4.1-5. 1 Not Available [facility] ([facility]) [address], [place], [address], 04/14/2023 06:14:26 04/13/2004/14/2023 COMP. METAB OLIC PANEL (14) globulin, total 3.0 g/dL 1.5-4. 5 Not Available [facility] ([facility]) [address], [place], [address], 04/14/2023 06:14:26 04/13/20 23 04/14/2023 COMP. METAB OLIC PANEL (14) A/G ratio 1.4 1.2-2. 2 Not Available [facility] ([facility]) [address], [place], [address], 04/14/2023 06:14:26 04/13/20 23 04/14/2023 COMP. METAB OLIC PANEL (14) bilirubin, total <0.2 mg/dL 0.0-1. 2 Not Available [facility] ([facility]) [address], [place], [address], 04/14/2023 06:14:26 04/13/2004/14/2023 COMP. METAB OLIC PANEL (14) alkaline phosphatase 92 IU/L 44-121 Not Available [facility] ([facility]) [address], [place], [address], 04/14/2023 06:14:26 04/13/20 23 04/14/2023 COMP. METAB OLIC PANEL (14) AST (SGOT) 15 IU/L 0-40 Not Available [facility] ([facility]) [address] [place], [address], 04/14/2023 06:14:26 04/13/20 23 04/14/2023 COMP. METAB OLIC PANEL (14) ALT (SGPT) 22 IU/L 0-44 Not Available [facility] ([facility]) [address] [facility], [place], [address], 04/14/2023 06:14:26 04/13/20 23 04/13/2023 CBC WITH DIFFE RENTI AL/PL ATELE T WBC 9.0 x10e3 /uL 3.4-10 .8 Not Available [facility] ([facility]) [address] [facility], [place], [address], 04/14/2023 06:14:27 04/13/20 23 04/13/2023 CBC WITH DIFFE RENTI AL/PL ATELE T RBC 5.15 x10e6 /uL 4.14-5 .80 Not Available [facility] ([facility]) [address] [place], [address], 04/14/2023 06:14:27 04/13/20 23 04/13/2023 CBC WITH DIFFE RENTI AL/PL ATELE T hemoglobin 13.8 g/dL 13.0-1 7.7 Not Available [facility] ([facility]) [address] [place], [address], 04/14/2023 06:14:27 04/13/20 23 04/13/2023 CBC WITH DIFFE RENTI AL/PL ATELE T hematocrit 42.5 % 37.5-5 1.0 Not Available [facility] ([facility]) [address] [facility], [place], [address], 04/14/2023 06:14:27 04/13/20 23 04/13/2023 CBC WITH DIFFE RENTI AL/PL ATELE T MCV 83 fL 79-97 Not Available [facility] ([facility]) [address] [place], [address], 04/14/2023 06:14:27 04/13/20 23 04/13/2023 CBC WITH DIFFE RENTI AL/PL ATELE T MCH 26.8 pg 26.6-3 3.0 Not Available [facility] ([facility]) [address] [facility], [place], [address], 04/14/2023 06:14:27 04/13/20 23 04/13/2023 CBC WITH DIFFE RENTI AL/PL ATELE T MCHC 32.5 g/dL 31.5-3 5.7 Not Available [facility] ([facility]) [address] [place], [address], 04/14/2023 06:14:27 04/13/20 23 04/13/2023 CBC WITH DIFFE RENTI AL/PL ATELE T RDW 14.2 % 11.6-1 5.4 Not Available [facility] ([facility]) [address] [place], [address], 04/14/2023 06:14:27 04/13/20 23 04/13/2023 CBC WITH DIFFE RENTI AL/PL ATELE T platelets 314 x10e3 /uL 150-45 0 Not Available [facility] ([facility]) [address] [place], [address], 04/14/2023 06:14:27 04/13/20 23 04/13/2023 CBC WITH DIFFE RENTI AL/PL ATELE T neutrophils 51 % notest ab. Not Available [facility] ([facility]) [address] [place], [address], 04/14/2023 06:14:27 04/13/20 23 04/13/2023 CBC WITH DIFFE RENTI AL/PL ATELE T lymphs 42 % notest ab. Not Available [facility] ([facility]) [address] [place], [address], 04/14/2023 06:14:27 04/13/20 23 04/13/2023 CBC WITH DIFFE RENTI AL/PL ATELE T monocytes 6 % notest ab. Not Available [facility] ([facility]) [address] [facility], [place], [address], 04/14/2023 06:14:27 04/13/20 23 04/13/2023 CBC WITH DIFFE RENTI AL/PL ATELE T eos 1 % notest ab. Not Available [facility] ([facility]) [address] [facility], [place], [address], 04/14/2023 06:14:27 04/13/20 23 04/13/2023 CBC WITH DIFFE RENTI AL/PL ATELE T basos 0 % notest ab. Not Available [facility] ([facility]) [address] [place], [address], 04/14/2023 06:14:27 04/13/2004/13/2023 CBC WITH DIFFE RENTI AL/PL ATELE T neutrophils (absolute) 4.5 x10e3 /uL 1.4-7. 0 Not Available [facility] ([facility]) [address] [place], [address], 04/14/2023 06:14:27 04/13/20 23 04/13/2023 CBC WITH DIFFE RENTI AL/PL ATELE T lymphs (absolute) 3.8 x10e3 /uL 0.7-3. 1 above high normal Not Available [facility] ([facility]) [address] [place], [address], 04/14/2023 06:14:27 04/13/20 23 04/13/2023 CBC WITH DIFFE RENTI AL/PL ATELE T monocytes(ab solute) 0.6 x10e3 /uL 0.1-0. 9 Not Available [facility] ([facility]) [address] [facility] [place], [address], 04/14/2023 06:14:27 04/13/20 23 04/13/2023 CBC WITH DIFFE RENTI AL/PL ATELE T eos (absolute) 0.1 x10e3 /uL 0.0-0. 4 Not Available [facility] ([facility]) [address] [facility], [place], [address], 04/14/2023 06:14:27 04/13/20 23 04/13/2023 CBC WITH DIFFE RENTI AL/PL ATELE T baso (absolute) 0.0 x10e3 /uL 0.0-0. 2 Not Available [facility] ([facility]) [address] [facility], [place], [address], 04/14/2023 06:14:27 04/13/20 23 04/13/2023 CBC WITH DIFFE RENTI AL/PL ATELE T immature granulocytes 0 % notest ab. Not Available [facility] ([facility]) [address] [facility], [place], [address], 04/14/2023 06:14:27 04/13/20 23 04/13/2023 CBC WITH DIFFE RENTI AL/PL ATELE T immature grans (abs) 0.0 x10e3 /uL 0.0-0. 1 Not Available [facility] ([facility]) [address] [place], [address], 04/14/2023 06:14:27 04/13/20 23 04/14/2023 ALBUM IN/CR EATIN INE RATIO ,URIN E creatinine, urine 166.9 mg/dL notest ab. Not Available [facility] ([facility]) [address] [facility], [place], [address], 04/14/2023 09:16:41 04/13/2004/14/2023 ALBUM IN/CR EATIN INE RATIO ,URIN E albumin, urine 32.1 ug/mL notest ab. Not Available [facility] ([facility]) [address] [facility], [place], [address], 04/14/2023 09:16:41 04/13/20 23 04/14/2023 ALBUM IN/CR EATIN INE RATIO ,URIN E alb/creat ratio 19 mg/g_ creat 0-29 Marixa l: 0 - 29 Moder ately incre ased: 30 - 300 Sever ruben incre ased: >300 Not Available [facility] ([facility]) [address] [facility], [place], [address], 04/14/2023 09:16:41 04/13/20 23 04/14/2023 TSH RFX ON ABNOR MAL TO FREE T4 TSH 1.510 uIU/m L 0.450- 4.500 Not Available [facility] ([facility]) [address] [facility], [place], [address], 04/14/2023 09:16:42 04/13/20 23 04/13/2023 HbA1c (hemo globi n A1c), blood HbA1c 10.6 Not Available In-Office Order Internal Use Only DO Not Attach Compendium DO Not Attach Compendium, Do Not Delete/merge, [id number] 04/13/2023 10:29:30 01/03/20 24 01/03/2024 HbA1c (hemo globi n A1c), blood HbA1c 11.2 Not Available In-Office Order Internal Use Only DO Not Attach Compendium DO Not Attach Compendium, Do Not Delete/merge, [id number] 01/03/2024 10:22:45 Result Notes None recorded. Problems Name Problem SNOMED Code Status Onset Date Resolution Date Notes Provider Name and Address Organization Details Recorded Time Mixed anxiety and depressive disorder 481314845 Active 2022 Emily Rocha MD Attn: Accounting ,[address] [facility], [place], [address] , [facility] 10:34:23 History of myocardial infarction 699876005 Active 2022 Emily Rocha MD Attn: Accounting ,[address] [facility], [place], [address] , [facility] 3 10:34:24 Fatigue 63004787 Active 2022 Emily Rocha MD Attn: Accounting ,[address] [facility], [place], [address] , [facility] 3 10:34:25 Type 2 diabetes mellitus 38803027 Active 2022 Emily Rocha MD Attn: Accounting ,[address] [facility], [place], [address] , [facility] 3 10:34:27 Obesity 614203652 Active 2022 Emily Rocha MD Attn: Accounting ,[address] [facility], [place], [address] , [facility] 3 10:34:28 Problem Notes None recorded. Procedures Surgical History Date Name Laterality Status Provider Name and Address Organization Details Recorded Time placement of stent in cardiac conduit completed Robyn Lane MA [facility] 04/13/2023 10:00:54 Imaging Results None recorded. Procedure Notes None recorded. Medical Equipment None Reported. Allergies No known drug allergies Medications Name Sig Start Date Stop Date Status Note LastModified by Organization Details LastModified Time metformin 500 mg tablet Take 1 tablet twice a day by oral route. 01/02 completed Not Available Not Available Not Available nicotine 14 mg/24 hr daily transdermal patch Apply 1 patch every day by transderm al route. active Not Available Not Available No t Available clopidogrel 75 mg tablet TAKE 1 TABLET BY MOUTH DAILY active Not Available Not Available No t Available glimepiride 2 mg tablet Take 1 tablet every day by oral route. active Not Available Not Available No t Available metformin 1,000 mg tablet TAKE 1 TABLET TWICE a DAY BY ORAL ROUTE FOR 30 DAYS. active Not Available Not Available No t Available metoprolol succinate ER 25 mg tablet,exte nded release 24 hr Take 1 tablet every day by oral route. active Not Available Not Available No t Available sertraline 50 mg tablet TAKE 1 TABLET BY MOUTH DAILY FOR 30 DAYS active Not Available Not Available No t Available rosuvastati n 40 mg tablet Take 1 tablet every day by oral route. active Not Available Not Available No t Available aspirin active Not Available Not Avail able Not Available OneTouch Verio test strips USE TO CHECK BLOOD GLUCOSE DAILY active Not Available Not Available No t Available OneTouch Delica Plus Lancet 33 gauge USE TO TEST BLOOD SUGAR DAILY active Not Available Not Available No t Available Vitals Date Recorded Body height Body mass index (BMI) Body weight Respiratory rate Heart rate Systolic blood pressure Diastolic blood pressure Provider Name and Address Organization Details Last Updated DateTime 3 175.26 cm 37.1 kg/m2 158287. 08 g 16 /min 80 /min 122 mm[Hg] 79 mm[Hg] Robyn Lane MA [facility] 3 10:17:08 Date Recorded Body height Body mass index (BMI) Body weight Respiratory rate Body temperature Heart rate Heart rate Systolic blood pressure Diastolic blood pressure Systolic blood pressure Diastolic blood pressure Provider Name and Address Organization Details Last Updated DateTime 4 175.26 cm 38 kg/m2 118573. 69 g 16 /min 98.6 [degF] 99 /min 86 /min 142 mm[Hg] 93 mm[Hg] 119 mm[Hg] 79 mm[Hg] Aissatou Phelps MA [facility] 4 10:47:51 Social History Question Answer Notes LastModified by Organizat ion Details LastModified Time Tobacco Smoking Status Former Smoker Quit 2 weeks ago on 03/31/[address] MA [facility], [facility] 04/13/2023 10:05:09 Do You Or Have You Ever Used E-cigarettes Or Vape? Current User Of Electronic Cigarettes Information not available 04/13/2023 What Was The Date Of Your Most Recent Tobacco Screening? 01/03/2024 Information not available 01/03/2024 Do You Use Any Illicit Or Recreational Drugs? Yes MJ Everyday Information not available 04/13/2023 Has Tobacco Cessation Counseling Been Provided? Yes Information not available 04/13/2023 On What Date Was Tobacco Cessation Counseling Provided? 01/03/2024 Information not available 01/03/2024 Do You Or Have You Ever Used Any Other Forms Of Tobacco Or Nicotine? Yes Information not available 04/13/2023 Sex: Male Functional Status None recorded. Mental Status None recorded. Family History Relationship Description Onset Age of this Age Resolved Age Notes LastModified by Organization Details LastModified Time Father Heart disease [email or web address] Not available 04/13 10:04:11 Mother Diabetes mellitus [email or web address] Not available 04/13 10:04:20 Mother Kidney disease [email or web address] Not available 04/13 10:04:41 Medical History Condition Response Diabetes Y Anxiety Disorder Y Muscle, Joint, or Bone Problems Y Heart Attack (MD) Y Blood Clots Y High Cholesterol Y Past Encounters Encounter ID Performer Location Encounter Start Date Encounter Closed Date Diagnosis/Indication Diagnosis SNOMED-CT Code Diagnosis ICD10 Code Diagnosis Note [id number] MD Leta HERNANDEZ 14 IM [address] [facility] [address] [place] [address] 04/13/2023 09:34:12 05/09/2023 09:10:46 Obesity 066517761 E66.9 Discussed diet at length including healthier food options, increase vegetable and fiber intake, reduce salt intake, incorporat e yoga/stret dilcia practices and exercise 30 min 5 x per week to improve cardiovasc ular health. TSH w reflex T4 Type 2 alden betes mellitus 47121649 E11.9 a1c unknownsta rted metformin 500 mg bid - diarrhea resolved - increase metformin to goal 1000 mg bid- consider DC glimepirid e 2 mg po w meals -- switch to GLP-1 for patient's increased ASCVD risk score- discussed metamucil- alb/cr ratio urine- CMP Fatigue 21664448 R53.83 cbc History of myocardial infarction 492648520 I25.2 - cardiologi st at [facility] [place]- [facility] 03/28 - 03/31/23 for NSTEMI. Patient underwent cardiac cath with stent placement. Currently on clopidogre l 75 mg po qd, rosuvastat in 40 mg po qd, ASA 81 mg po ed, metoprolol succ XL 25 mg, glimepirid e 2 mg po qd w meals, metformin 500 mg po BID, nicotine patch.- await DC summary - increase metformin to goal 1000 mg bid- consider DC glimepirid e 2 mg po w meals -- consider GLP-1 for patient's increased ASCVD risk score- lipid panel w LDL/HDL ratio- follow up in 4 weeks Mixed anxi ety and depressive disorder 174944629 F41.8 GAD7- 18PHQ9 - 9 - behavioura l health referral- sertraline 50 mg po QD- follow up in 6 weeks- discussed quitting MJ smoking which may be associated with paranoia feelings Marijuana user 847936130 F12.90 - discussed quitting MJ smoking which may be associated with paranoia feelings Discussed risks of smoking, including vascular, cardiac worsening symptoms. Patient was smoking shelbie cigarettes + cigar paper MJ mutliple times a day. Pt demonstrat es a clear understand ing without further questions or concerns at this time. [id number] MD Leta Salguero [address] [place] [address] 01/03/2024 10:03:04 01/06/2024 10:35:28 Type 2 diabetes mellitus 47794639 E11.9 a1c 10.6 in 04/2023 ==> inc to 11.2 (01/03/24)m etformin @ goal however patient poorly compliant - increase metformin to goal 1000 mg bid- consider DC glimepirid e 2 mg po w meals -- switch to GLP-1 for patient's increased ASCVD risk score- discussed metamucil- - patient not taking medication s as Rx-- follow up [address] Rocha-- est with Dr Baeza for pharmacy assist with education on DM History of myocardial infarction [id number] I25.2 - cardiologi st at [facility] - [place] -- patient has NOT followed up- [facility] 03/28 - 03/31/23 for NSTEMI. Patient underwent cardiac cath with stent placement. ==> Was discharged with clopidogre l 75 mg po qd, rosuvastat in 40 mg po qd, ASA 81 mg po ed, metoprolol succ XL 25 mg, glimepirid e 2 mg po qd w meals, metformin 500 mg po BID, nicotine patch.- await DC summary - increased metformin to goal 1000 mg bid- patient not taking medication s as Rx- consider DC glimepirid e 2 mg po w meals -- consider GLP-1 for patient's increased ASCVD risk score- lipid panel w LDL/HDL ratio -- referral to cardiologi st to re-establi sh Mixed anxi ety and depressive disorder 217836627 F41.8 GAD7- 18PHQ9 - 9 - behavioura health referral- sertraline 50 mg po QD- follow up in 6 weeks- discussed quitting MJ smoking which may be associated with paranoia feelings Obesity 032748581 E66.9 Discussed diet at length including healthier food options, increase vegetable and fiber intake, reduce salt intake, incorporat e yoga/stret dilcia practices and exercise 30 min 5 x per week to improve cardiovasc ular health.BMI 38 Marijuana user 211088809 F12.90 - discussed quitting MJ smoking which may be associated with paranoia feelings Discussed risks of smoking, including vascular, cardiac worsening symptoms. Patient was smoking shelbie cigarettes + cigar paper MJ mutliple times a day. Pt demonstrat es a clear understand ing without further questions or concerns at this time. Elevated blood-pressure reading without diagnosis of hypertension 448606708 R03.0 noted systolic BP 140s on 01/03/24 with tachycardi arecheck 119 systolic with HR 76was checked immediatel y after sitting down walking to room Health Concerns Section Related Observation LastModified by Organization Detai ls LastModified Time None Recorded Concern Status LastModified by Organization Details LastModified Time None Recorded Advance Directives Directive None Recorded Payers Encounter Date Sequence Insurance Name Policy Number Policy Bowman Covered Member ID Bowman Member ID Guarantor Name 04/13/2023 1 [place] Segundo King [id number] Segundo King 01/03/2024 1 [employer] [place] - [place] ON OR AFTER 2020 (MEDICAID REPLACEMENT - HMO) Segundo King [id number] Segundo King Notes Date Note Type Note Provider Name and Address Organization Details Recorded Time 04/13/2023 text/html 32 yo M presents to clinic to establish care s/p small MD (went to [facility] 03/28 - 03/31/23 for NSTEMI. Patient underwent cardiac cath with stent placement. Currently on clopidogrel 75 mg po qd, rosuvastatin 40 mg po qd, ASA 81 mg po ed, metoprolol succ XL 25 mg, glimepiride 2 mg po qd w meals, metformin 500 mg po BID, nicotine patch. Patient has quit smoking since he left hospital.Patient has made significant changes in diet - but is scared to eat unhealthy. Patient endorses has debilitating anxiety. Patient states mind rushing and anxiety has been struggling for awhile -- endorses this is why he started smoking. Patient is DM2, Fhx of DM. a1c in hospital unknown. Pt endorses finding out he had DM while in hospital. DOROTHY MONTOYA MD Attn: Accounting, [facility], [place], [address], [facility] 04/18/2023 15:27:16 01/03/2024 text/html 32 yo M presents to clinic for first follow up appt since having MD. Pt has not had any hospitalizations for MD since then. Patient endorses reason for missing multiple appts is due to having a child and his job not allowing him to have any time off. Patient endorses he has not changed his diet, he continues to smoke MJ. Pt denies CP currently. Patient endorses taking medications as Rx however stated he has slowed down on taking metformin and other meds because he wasnt sure his refills would last. He has not refilled medications regularly per patient. Pt also states he has increased in fruit intake (pineapple) and had no recollection of discussion regarding fruits that are high in sugar. Patient continues to smoke MJ and snacks are unhealthy. Eats at [employer] and endorses his work hours make it difficult for him to take care of eating healthy. Patient has been lost to follow up. History pertinent for:: - History of small MD (went to [facility] 03/28 - 03/31/23 for NSTEMI. Patient underwent cardiac cath with stent placement. Currently on clopidogrel 75 mg po qd, rosuvastatin 40 mg po qd, ASA 81 mg po ed, metoprolol succ XL 25 mg, glimepiride 2 mg po qd w meals, metformin 500 mg po BID, nicotine patch. Patient is DM2, Fhx of DM. Pt endorses finding out he had DM while in hospital. Leann Torres MD Attn: Accounting, [address] [facility], [place], [address], [facility] 01/06/2024 00:57:17
--- OUTSIDE RECORDS SUMMARY | 2024-12-09 20:23 | XMS_ITS | Encounter Summary ---
Author Organization [facility] Address [address] [place] [address] Phone Care Team Providers Care Theatre Director Name Role Phone No, Physician Primary Care Provider [phone] Judy Gil NP Primary Care Provider Encounter Details Date Type Department Care Team (Latest Contact Info) Description 03/30/2023 Orders Only OLEARY IM CARDIOLOGY Scanning, Provider [...] Procedure Name Priority Date/Time Associated Diagnosis Comments CARDIOLOGY DOCUMENT SCAN 03/29/2023 documented in this encounter Results * Cardiology Document Scan (03/29/2023) Anatomical Region Laterality Modality Other us Provider Scanning CV CARDIAC SERVICES PROCEDURES Edited Result - Final documented in this encounter Visit Diagnoses Not on filedocumented in this encounter Care Teams Theatre Director Relationship Specialty Start Date End Date No, Physician PCP - General 03/29/23 05/24/24 Judy Gil NP [address] DIV IM GENERAL MED, [address] [place] [address] PCP - General Nurse Practitioner 05/25/24 documented as of this encounter
--- OUTSIDE RECORDS SUMMARY | 2024-12-09 20:23 | XMS_ITS | Encounter Summary ---
Author Organization [facility] Address [address] [place] [address] Phone Care Team Providers Care Electrician Shop Name Role Phone No, Physician Primary Care Provider [phone] Judy Gil NP Primary Care Provider Encounter Details Date Type Department Care Team (Latest Contact Info) Description 03/28/2023 Orders Only OLEARY IM CARDIOLOGY Scanning, Provider [...] Date/Time Associated Diagnosis Comments SCAN - RADIOLOGY/IMAGING 03/28/2023 CARDIOLOGY DOCUMENT SCAN 03/28/2023 documented in this encounter Results * SCAN - RADIOLOGY/IMAGING (03/28/2023) Anatomical Region Laterality Modality Other us Provider Scanning Edited Result - Final * Cardiology Document Scan (03/28/2023) Anatomical Region Laterality Modality Other us Provider Scanning CV CARDIAC SERVICES PROCEDURES Final Result documented in this encounter Visit Diagnoses Not on filedocumented in this encounter Care Teams Electrician Shop Relationship Specialty Start Date End Date No, Physician PCP - General 03/29/23 05/24/24 Judy Gil NP [address] [facility] [address] [place] [address] PCP - General Nurse Practitioner 05/25/24 documented as of this encounter
[2024-12-09 20:25] VITALS: BP 147/88; PULSE 100; RESP 18; TEMP 36.3; O2SAT 100
--- OUTSIDE RECORDS SUMMARY | 2024-12-09 21:16 | XMS_ITS | Encounter Summary ---
Author Organization [facility] Address [address] [place] [address] Phone Care Team Providers Care Isobutylene Operator Chief Name Role Phone No, Physician Primary Care Provider [phone] Judy Gil NP Primary Care Provider Encounter [...] on filedocumented in this encounter Care Teams Isobutylene Operator Chief Relationship Specialty Start Date End Date No, Physician PCP - General 03/29/23 05/24/24 Judy Gil NP [address] [facility], [facility] [place] [address] PCP - General Nurse Practitioner 05/25/24 documented as of this encounter
--- OUTSIDE RECORDS SUMMARY | 2024-12-09 21:16 | XMS_ITS | Encounter Summary ---
Author Organization [facility] Address [address] [place] [address] Phone Care Team Providers Care Metal Mold Dresser Name Role Phone No, Physician Primary Care Provider [phone] Judy Gil NP Primary Care Provider Encounter [...] on filedocumented in this encounter Care Teams Metal Mold Dresser Relationship Specialty Start Date End Date No, Physician PCP - General 03/29/23 05/24/24 Judy Gil NP [address] DIV IM GENERAL MED, [address] [place] [address] PCP - General Nurse Practitioner 05/25/24 documented as of this encounter
--- OUTSIDE RECORDS SUMMARY | 2024-12-09 21:16 | XMS_ITS | Encounter Summary ---
Author Organization [facility] Address [address] [place] [address] Phone Care Team Providers Care Health Program Analyst Name Role Phone No, Physician Primary Care Provider [phone] Judy Gil JACK SPOOLER TENDER Primary Care Provider Encounter Details Date Type [...] on filedocumented in this encounter Care Teams Health Program Analyst Relationship Specialty Start Date End Date No, Physician PCP - General 03/29/23 05/24/24 Judy Gil NP [address] [facility] [address] DIV IM GENERAL MED, [address] [place] [address] PCP - General Nurse Practitioner 05/25/24 documented as of this encounter
--- OUTSIDE RECORDS SUMMARY | 2024-12-09 21:16 | XMS_ITS | Encounter Summary ---
Author Organization [facility] Address [address] [place] [address] Phone Care Team Providers Care Snout Puller Name Role Phone No, Physician Primary Care Provider [phone] Judy Gil NP Primary Care Provider Encounter [...] on filedocumented in this encounter Care Teams Snout Puller Relationship Specialty Start Date End Date No, Physician PCP - General 03/29/23 05/24/24 Judy Gil NP [address] [facility], [facility] [address] [place] [address] PCP - General Nurse Practitioner 05/25/24 documented as of this encounter
--- OUTSIDE RECORDS SUMMARY | 2024-12-09 21:16 | XMS_ITS | Clinical Summary ---
Author Organization [facility] Address [address] [place] [address] Care Team Providers Care Counselor Marriage And Family Name Role Phone Judy Gil SUPERVISOR WALL MIRROR DEPARTMENT Primary Care Provider Allergies No known active [...] complication, without long-term current use of insulin ([facility]) Inject 10 Units under the skin nightly [...] History of myocardial infarction 04/13/2023 Overview (05/25/2024): -[place] 03/2023, stent placed in [facility] -he has not followed up with [...] Comments Blood Pressure 122/77 07/18/2024 1:10 PM PRACTICE MANAGER Pulse 103 07/18/2024 1:10 PM PRACTICE MANAGER Temperature 36.6 C (97.9 F) 05/24/2024 10:48 AM CDT Respiratory Rate - - Oxygen Saturation 98% 07/18/2024 1:10 PM PRACTICE MANAGER Inhaled Oxygen Concentration - - Weight 117.1 kg (258 lb 3.2 oz) 07/18/2024 1:10 PM PRACTICE MANAGER Height 170.2 cm (5' 7 ) 07/18/2024 1:10 PM PRACTICE MANAGER Body Mass Index 40.44 07/18/2024 1:10 PM PRACTICE MANAGER Plan of Treatment Health Maintenance Due Date [...] LAB BLOOD ORDERABLES Fi nal Result [facility] One [facility] Department [place] [address] * (ABNORMAL) Hemoglobin A1c (05/24/2024 11:40 AM CDT) Hgb A1C 12.0(H) 4.0 - 5.6 % Estimated Average Glucose 298 mg/dL [facility] Comment: The ADA recommends reporting an [...] LAB BLOOD ORDERABLES Fi nal Result [facility] [place] [address] * Lipid panel (05/24/2024 11:40 AM CDT) [...] on 2018. Triglycerides 91 <=149 mg/dL [facility] Comment: [...] on 2018. HDL 40 >=40 mg/dL [facility] Comment: [...] revised on 2018. Chol/HDL ratio 3 [facility] Blood 05/24/2024 11:4 0 AM CDT 05/24/2024 12:03 PM CDT us Judy Gil SUPERVISOR WALL MIRROR DEPARTMENT LAB BLOOD ORDERABLES nal Result [facility] One [facility] Department [place] [address] from Last 3 Months or Most Recently Relevant to Health Maintenance Insurance [facility] Care Teams Counselor Marriage And Family Relationship Specialty Start Date End Date Judy Gil NP [address] [facility] DIV GENERAL MED, [facility] [address] [place] [address] PCP - General Nurse Practitioner 05/25/24
--- OUTSIDE RECORDS SUMMARY | 2024-12-09 21:16 | XMS_ITS | Referral Summary ---
Author Organization [facility] Address [address] [place] [address] Care Team Providers Care New Car Make Ready Worker Name Role Phone Judy Gil REAL ESTATE ASSISTANT Primary Care Provider Allergies No known active [...] complication, without long-term current use of insulin ([facility]) Inject 10 Units under the skin nightly [...] History of myocardial infarction 04/13/2023 Overview (05/25/2024): -[place] 03/2023, stent placed [facility] -he has not followed up with cardiology [...] Comments Blood Pressure 122/77 07/18/2024 1:10 PM FIBROUS PLASTERER Pulse 103 07/18/2024 1:10 PM FIBROUS PLASTERER Temperature 36.6 C (97.9 F) 05/24/2024 10:48 AM CDT Respiratory Rate - - Oxygen Saturation 98% 07/18/2024 1:10 PM FIBROUS PLASTERER Inhaled Oxygen Concentration - - Weight 117.1 kg (258 lb 3.2 oz) 07/18/2024 1:10 PM FIBROUS PLASTERER Height 170.2 cm (5' 7 ) 07/18/2024 1:10 PM FIBROUS PLASTERER Body Mass Index 40.44 07/18/2024 1:10 PM FIBROUS PLASTERER Plan of Treatment Not on file Procedures [...] ORDERABLES Fi nal Result Performing Organization Address City/[facility] Co de Phone Number [facility] [place] [address] * (ABNORMAL) Hemoglobin A1c (05/24/2024 11:40 AM CDT) Hgb A1C 12.0(H) 4.0 - 5.6 % Estimated Average Glucose 298 mg/dL [facility] Comment: The ADA recommends reporting an estimated [...] ORDERABLES Fi nal Result Performing Organization Address [facility] Co de Phone Number [facility] [employer] [place] [address] * Lipid panel (05/24/2024 11:40 AM CDT) [...] revised on 2018. Triglycerides 91 <=149 mg/dL [facility] Comment: Interpretive Data Ages < or = [...] revised on 2018. HDL 40 >=40 mg/dL [facility] Comment: Interpretive Data Ages < or = [...] 2018. LDL, calculated 59 <=129 mg/dL [facility] Comment: Interpretive Data Ages < or [...] revised on 2024. Non-HDL Cholesterol 77 mg/dL [facility] Comment: Interpretive Data Ages < or [...] last revised on 2018. Chol/HDL ratio 3 [facility] Blood 05/24/2024 11:4 0 AM CDT 05/24/2024 12:03 PM CDT Judy Gil NP LAB BLOOD ORDERABLES nal Result [facility] One [facility] Department [place] [address] from Last 3 Months or Most Recently Relevant to Health Maintenance Insurance [facility] Care Teams New Car Make Ready Worker Relationship Specialty Start Date End Date Judy Gil NP [address] [facility] DIV IM GENERAL MED, [address] [place] [address] PCP - General Nurse Practitioner 05/25/24
[2024-12-09] MEDS: HYDROcodone/acetaminophen (*CRX) 5-325 MG TABLET 1 TAB PO (22:15)
[2024-12-09] MEDS: CYCLOBENZAPRINE HCL 5 MG TABLET PO (22:15)
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
== END 2024-12-09 23:12 | disposition home or self-care (01) ==
PROVIDERS: Emergency Provider Physician Assistant
DX: S39.012A Strain of muscle, fascia and tendon of lower back, initial encounter (principal); I25.10 Atherosclerotic heart disease of native coronary artery without angina pectoris; F17.210 Nicotine dependence, cigarettes, uncomplicated; Z79.82 Long term (current) use of aspirin; Z79.84 Long term (current) use of oral hypoglycemic drugs; Z79.899 Other long term (current) drug therapy; Z79.02 Long term (current) use of antithrombotics/antiplatelets; V49.40XA Driver injured in collision with unspecified motor vehicles in traffic accident, initial encounter
CPT/HCPCS: 72128; 72131; 99284; A9270